=== PATIENT | male | born 1955 | race Caucasian/White ===

== ENCOUNTER → 2016-10-01 | Outpatient (CLI) | payer BC, OTHER ==
[~2016-10-01] MED LIST: ACET-24 PO; ARXIS25 SQ; ASPI81TA28 PO; CLC100 PO; DULO60CA44 PO; IBUP-103 PO; KRIL1CAP3 PO; LISI-729 PO; LISI2.5T5 PO; LRT5 PO; LVNIS30 SQ; MULT-890 PO; OXYC15TA89 PO; OXYC1TAB3 PO; OXYSR10 PO; PRAV20TA PO; RXC5 PO; ULT50X PO
== END | disposition home or self-care (01) ==
LOC: C.RDSM 15:40
PROVIDERS: ATTEND Physical Medicine & Rehabilitation Sports Medicine
DX: M25.569 Pain in unspecified knee (principal)

== ENCOUNTER → 2017-03-13 | Outpatient (CLI) | payer OTHER ==
[~2017-03-13] MED LIST changes: -ACET-24 PO; -LISI2.5T5 PO; -LVNIS30 SQ; -MULT-890 PO; -OXYC1TAB3 PO; -OXYSR10 PO; -RXC5 PO; -ULT50X PO
--- NOTE | 2017-03-13 09:35 | DIAGNOSTIC IMAGING REPORT ---
LEG LENGTH STUDY (WHOLE LEG) CLINICAL HISTORY: 61 years-old Male presenting with LEG LENGTH. TECHNIQUE: Bilateral frontal standing views of the lower extremities were obtained. COMPARISON: Plain radiographs of the bilateral knees in standing position from 04/23/2012. FINDINGS: Right: Right femur length: 48.9 cm Right tibia length: 40.4 cm Right leg length: 89.3 cm Left: Left femur length: 49.4 cm Left tibial length: 40.0 cm: Left leg length: 89.4 cm Degenerative changes noted at the bilateral knee joints with medial joint space loss increased since 2011. Bilateral hip joints and ankle mortises congruent. No significant degenerative change of the hips or ankles. No acute osseous injury. IMPRESSION: 1. No leg length discrepancy. 2. Bilateral degenerative changes of the knee joints with greater medial joint space loss in comparison to 2011. Electronically signed by: Eddie Pimentel M.D. 03/13/2017 9:34 AM Dictated Date/Time: 03/13/2017 9:31 AM
== END | disposition home or self-care (01) ==
LOC: C.RDSM 09:20
PROVIDERS: ATTEND Physician Assistant
DX: M17.0 Bilateral primary osteoarthritis of knee (principal)

== ENCOUNTER 2017-04-07 06:01 | Inpatient (IN) | payer OTHER ==
[2017-03-13 10:49] VITALS: BMI 24.0
--- NOTE | 2017-03-13 11:26 | PAT Medication Instructions ---
Service Date Mar 13, 2017. Current Home Medication List Aspirin (Aspirin Ec), 81 MG PO QAM Duloxetine Hcl (Cymbalta), 60 MG PO HS Ibuprofen Tab (Advil), 400 MG PO BID PRN for RN Krill Oil (Krill Oil), 1 TAB PO QAM Lisinopril (Zestril), 2.5 MG PO QAM Oxycodone Hcl (Oxycontin), 15 MG PO QID Medication Instructions For Your Scheduled Surgery - Check with surgeon for instructions: Ibuprofen Tab (Advil), 400 MG PO BID PRN for RN - Hold the following medications 2 weeks prior to surgery: Krill Oil (Krill Oil), 1 TAB PO QAM - Hold the following medications the morning of surgery: Lisinopril (Zestril), 2.5 MG PO QAM - Take the following medications the morning of surgery with a sip of water: Oxycodone Hcl (Oxycontin), 15 MG PO QID (okay to take up to 4 hours prior to surgery if needed) Aspirin (Aspirin Ec), 81 MG PO QAM (okay to continue per surgeon) - Take the following medications as scheduled the night before surgery: Oxycodone Hcl (Oxycontin), 15 MG PO QID Duloxetine Hcl (Cymbalta), 60 MG PO HS If you have any questions please call us at [phone] or [phone] or [phone]
--- NOTE | 2017-03-13 12:13 | DIAGNOSTIC IMAGING REPORT ---
CHEST PREADMISSION(PA/LAT) CLINICAL HISTORY: Preoperative chest COMPARISON STUDY: No previous studies for comparison. FINDINGS: The cardiac and mediastinal contours are normal. There is no evidence of focal pulmonary consolidation. There is no evidence of failure. No pleural effusions are visualized.[ IMPRESSION: No active disease in the chest. Electronically signed by: Nahum Duarte M.D. 03/13/2017 12:11 PM Dictated Date/Time: 03/13/2017 12:11 PM
[2017-03-13 12:28] LABS: BASO % 0.4 %; BASO ABS # 0.02 K/uL (0-0.2); COMPLETE YES; EOS % 5.2 %; IG% 0.2 %; LYMPH % 40.2 %; LYMPH ABS # 2.17 K/uL (1.2-3.4); MEAN CELL VOLUME 85.5 fL (80-100); MEAN CORPUSCULAR HEMOGLOBIN 29.9 pg (25-34); MEAN PLATELET VOLUME 11.6 fL (7.4-10.4); PLATELET COUNT 192 K/uL (130-400); RED BLOOD COUNT 4.91 M/uL (4.7-6.1)
[2017-03-13 12:41] LABS: PARTIAL THROMBOPLASTIN RATIO 1.1; PROTHROMBIN TIME (PATIENT) 10.3 SECONDS (9.0-12.0)
[2017-03-13 12:50] LABS: BUN/CREATININE RATIO 14.1 (10-20); CALCIUM 9.1 mg/dl (8.5-10.1); CREATININE 0.68 mg/dl (0.60-1.40); POTASSIUM 3.7 mmol/L (3.5-5.1)
[2017-04-07] VITALS (8 sets, daily range): BP systolic 119–150; BP diastolic 57–86; PULSE 59–82; TEMP 36.4–36.7; O2SAT 94–97; Ht 177.8 cm; Wt 77.9 kg
[~2017-04-07] VITALS: Ht 177.8 cm; Wt 77.9 kg
[~2017-04-07 06:01] MED LIST changes: +ACETAMINOPHEN 500 MG TAB PO SCH; -ARXIS25 SQ; +CEFAZOLIN 2000MG IV PUSH 10 ML IV SCH; -CLC100 PO; +CLONIDINE HCL 0.1 MG/24 HR TRANSDERM SYS TD SCH; +CeleBREX 200 MG CAP PO SCH; +DEXAMETHASONE 4 MG TAB PO SCH; +FAMOTIDINE 20 MG TAB PO SCH; +GABAPENTIN 300 MG CAP PO SCH; +LACTATED RINGER'S 1000ML 1,000 ML IV SCH; +LACTATED RINGER'S 1000ML 500 ML IV ONE; +LACTATED RINGER'S 1000ML IV SCH; -LISI-729 PO; +LISI2.5T5 PO; -LRT5 PO; +METOCLOPRAMIDE HCL 10 MG TAB PO SCH; +OXYCODONE HCL 10 MG TABCR (OXYCONTIN) PO SCH; -PRAV20TA PO; +ROPIVACAINE 5MG/ML 30 ML 150 MG, BUPIVACAINE/EPINEPHR 0.5% MPF 30 ML, KETOROLAC TROMETH... INFIL SCH; +TRAMADOL HCL 50 MG TAB PO SCH
[2017-04-07] MEDS ORDERED: BUPIVACAINE 0.5 % 5 MG/1 ML PF 10ML VIAL ONE (06:25)
[2017-04-07] MEDS ORDERED: BUPIVACAINE 0.25% 30 ML VIAL ONE (06:25)
[2017-04-07] MEDS ORDERED: EpHEDrine SULFATE INJ 50 MG/ML AMP IV PRN (06:30)
[2017-04-07] MEDS ORDERED: ONDANSETRON INJ 2 MG/ML 2 ML VIAL IV PRN ×2 (06:30→12:45)
[2017-04-07] MEDS ORDERED: ATROPINE SULFATE 0.1 MG/ML 5ML SYR IV PRN (06:30)
[2017-04-07] MEDS ORDERED: PROMETHAZINE HCL INJ 12.5 MG in SODIUM CHLORIDE 0.9% 50ML 50 ML IV PRN (06:30)
[2017-04-07] MEDS: TRANEXAMIC ACID INJ 1,000 MG in SODIUM CHLORIDE 0.9% 100ML 100 ML IV SCH ×2 (06:30→07:26)
[2017-04-07] MEDS ORDERED: HYDROmorphone INJ 1 MG/ML SYR IV PRN (06:30)
[2017-04-07] MEDS ORDERED: FENTANYL CITRATE INJ 50 MCG/1 ML 2 ML VIAL IV PRN (06:30)
--- NOTE | 2017-04-07 06:46 | History & Physical Bridge Note ---
H&P Re-Evaluation Bridge Note: I have examined the patient, reviewed the History & Physical and in the interval since the performance of the History & Physical I have noted the following changes of clinical significance: No changes noted
[2017-04-07] MEDS ORDERED: MIDAZOLAM HCL 1 MG/ML 2ML VIAL ONE ×3 (07:04→10:27)
[2017-04-07] MEDS ORDERED: FENTANYL CITRATE INJ 50 MCG/1 ML 2 ML VIAL ONE ×2 (07:04→11:02)
[2017-04-07] MEDS ORDERED: BACITRACIN 50000 UNIT VIAL ONE (09:01)
[2017-04-07] MEDS ORDERED: POVIDONE-IODINE OP SOLN 30 ML BTL ONE (09:01)
[2017-04-07] MEDS ORDERED: ORTHO JOINT ANESTHETIC ONE (09:01)
[2017-04-07] MEDS ORDERED: PROPOFOL IV EMULSION 10 MG/ML 20 ML VIAL IV ONE ×3 (09:20→11:08)
--- NOTE | 2017-04-07 12:39 | [facility] Operative Report ---
Operative Report Operative Date Apr 07, 2017. Pre-Operative Diagnosis Left Knee End-Stage Degenerative Joint Disease Post-Operative Diagnosis Left Knee End-Stage Degenerative Joint Disease Procedure(s) Performed Left Total Knee Arthroplasty, Repair Partial Patellar Tendon Avulsion Surgeon Dr. Eddie Morales Rotogravure Press Operator Surgeon(s) Dr. Patric Walker and Rosie Albright PA-C Estimated Blood Loss 100ml Findings Severe medial compartment osteoarthritis Specimens Permanent: A. Left Knee Bone and Tissue Drains none Anesthesia spinal with peripheral nerve block and IV sedation Complication(s) Partial intraoperative patellar tendon avulsion measuring 10 mm medial to lateral with an 12.5 mm superior to inferior dimension Indications Patient is a 61-year-old male with left knee medial compartment osteoarthritis refractory to nonsurgical methods of management including therapy medications prior surgery and injections. He is elected to proceed with operative intervention. Description of Procedure Informed consent was obtained. Patient was identified as Jaime Bagley. He identified the operative site as the left knee. I marked with my initials and preoperative surgical timeout was performed. Preoperative dose of IV antibiotics was given. He was taken to the operating room positioned supine on the operating room table. Spinal anesthetic peripheral nerve block and sedation were administered. The left leg was prepped and draped from the tourniquet to the ankle in the usual sterile fashion. A bump was placed under the left hip and a tourniquet about the left thigh. The examination under anesthesia revealed range of motion 0/7/120. There was no pathological laxity varus or valgus he had a negative Amrita and posterior drawer there is no effusion. The leg was then. DVT prophylaxis intraoperatively with foot pumps and postoperatively early mobility can go devices and Lovenox. He received a preoperative dose of transanexamic acid. The limb was exsanguinated with the Esmarch. Tourniquet inflated 150 mmHg. A midline longitudinal incision was made and extended slightly proximally and distally as necessary for total length of about 20-25 cm. A medial arthrotomy was performed followed by an extensile medial release. The retropatellar fat pad was resected. The synovial reflection in the lateral gutter was released. Soft tissue on the anterior aspect the distal femur was removed. There was grade 2 and 3 changes of the patella with marginal osteophytes these were excised and the patella was eventually resurfaced. Marginal osteophytes throughout the knee particularly in the medial compartment which were fairly large were removed. The knee was then placed into the flex position with the patella everted. Cruciate ligaments were excised. The lateral compartment looked normal the lateral meniscus was resected. The medial meniscus was largely deficient and the remnants of it were removed. The knee at this point was attempted to be subluxated. A avulsion of the superior medial portion of the patellar tendon 10 mm wide 12.5 mm long shape like a triangle occurred. This is probably due to stiffness of the knee and the remaining soft tissue tension. At this time I inserted 2 pins to prevent further propagation and it stayed like that for the entire procedure. The position of the pins was adjusted to allow further instrumentation to happen in the tibia. I also performed a more extensile medial release to allow the the need to be subluxated more easily. The remnants of the cruciates were excised. The knee was then subluxated. An intramedullary alignment glenn was inserted. The 0 cutting block was affixed and set to take 10 off the high side corresponding to total to off the low side. This was pinned in place and the alignment was confirmed with the extra medullary alignment glenn. Block was pinned in place the cut was made. Marginal osteophytes were removed and this was sized to a 5. Attention was turned the femur were car pilot hole was drilled followed by insertion of the intramedullary guide. Was set for 6 valgus 12 thick cut based upon flexion contracture and preoperative templating. This was pinned in place and the cut was made. The extension gap was a symmetric snug 10 mm. Knee was fully extended. Size line and the trans-epicondylar axis were marked out. The femur sized to a 4 external rotation drill holes were made. The size 4 anterior cutting block was applied the collateral ligaments were protected and the tiffani wing was utilized confirmed that there was no notching. The guide was Oxycet just above the 4 by a couple millimeters to ensure that there was no notching. It was sized to a 4. The flexion gap was rectangular. The cuts were then made and the extraneous bone was removed. Osteophytes in the back the knee were removed and the flexion gap was a symmetric 10. He was a little bit of tightness on the medial side of the knee. This was relieved with excising later during the procedure the on Medial and posterior medial bone and osteophytes not covered by the tibial implant. Box cutting guide was applied lateralized pinned in place the cut was made and the trial femur was applied. The trial tibia was then inserted after drilling and punching the keel. The knee was able to be fully extended and it had no and CL laxity in mid position. The knee was stable in full extension. There is trace LCL laxity in mid position and no LCL or MCL laxity at 90 flexion. The patella measured 26 mm in thickness the guide was set to preserve 15 mm of bone. The 41 mm of size was selected. The patellar jig was utilized to perform the cut. The patellar paddle was medialized and distal eyes and the lug holes were drilled after proper orientation with the knee in slight flexion. The patella tracked fine with the no hands technique. The components were removed from the knee copious lavage was performed to clean the bony surfaces the back the knee was injected with the orthotic joint mix. The canals were plugged. The cement was mixed with third-generation technique knee and then the components were cemented in place femur tibia and patella. Extraneous cement was removed. Care was taken to avoid flexion of the femoral component. The knee was then held full extension until cement hardened. The canals were previously plugged. Major of the arthritic joint mix was injected into the skin and subcutaneous tissues and joint capsule. After the cement had hardened the tourniquet was let down and meticulous hemostasis was performed. There was some mild oozing present and this was controlled with electrocautery. Didn't not appeared that the geniculate were bleeding. Trialing was again performed and the final component size 10 thick polyethylene was inserted patella tracked fine with a no hands technique. Composite patellar thickness was 26 mm. Greenwood assisted flexion with the extensor mechanism closed was 120 the knee was fully extended the laxity pattern was as mentioned previously. The back the knee was copiously irrigated and also inspected for cement. Extraneous cement in the back the knee was removed. This time the patellar tendon avulsion which had not propagated any further was repaired using 2 2.9 juggernaut anchors. The arthrotomy was closed with interrupted #2 FiberWire above the equator patella running and interrupted #1 Vicryl below the skin was closed in layers with 0 and 2-0 Vicryl jessie on the skin. A soft sterile dressing was applied with a full-length Jevon wrap. The patient was sent to the floor the knee immobilizer. The rehabilitation but will likely be unchanged due to his patellar tendon avulsion. He'll likely need to just use a knee immobilizer temporarily when ambulating to ensure that he has good quad control and function. Be rehabilitated according to the total knee rehabilitation protocol. At the conclusion operations both patient's informed her my findings. Detailed postoperative instructions were given. Blood loss was approximate 100 mL specimens included bone soft tissue counts are correct in the case complications were as mentioned above Components inserted were the J[employer]J PFC Sigma rotating platform knee size 5 keeled tibial tray size 4 posterior stabilized femoral component left. A size 4 10 mm thick rotating platform polyethylene insert and a 41 mm 3 peg oval dome patella I attest to the content of the Intraoperative Record and any orders documented therein. Any exceptions are noted below.
[2017-04-07] MEDS ORDERED: SOD PHOSPHATE/SOD BIPHOSPHATE ENEMA 132 ML BTL PR PRN (12:45)
[2017-04-07] MEDS ORDERED: TAMSULOSIN HCL 0.4 MG CAP PO PRN (12:45)
[2017-04-07] MEDS ORDERED: NO NSAIDS SCH (12:45)
[2017-04-07] MEDS ORDERED: MAGNESIUM HYDROXIDE SUSP 30 ML UDC PO PRN (12:45)
[2017-04-07] MEDS ORDERED: METOCLOPRAMIDE HCL INJ 5 MG/ML 2 ML VIAL IV PRN (12:45)
[2017-04-07] MEDS ORDERED: BISACODYL 10 MG SUPP PR PRN (12:45)
[2017-04-07] MEDS ORDERED: ALUMINUM/MAGNESIUM/SIMETH (MAALOX MAX) 30 ML UDC PO PRN (12:45)
--- NOTE | 2017-04-07 12:50 | History and Physical ---
History & Physical Date of Service Apr 07, 2017. History & Physical [address] [place] [address] History & Physical Patient Name: Jaime Bagley Unit Number: [id number] Date of : 1955 Patient Status: Pre-registered Surgical Day Care Attending Doctor: Eddie Morales M.D. History - H&P History & Physical Date & Time of Service: Mar 31, 2017 at 13:26 Chief Complaint: Left Knee Degenerative Joint Disease Primary Care Physician: Elio Bejarano D.O. History of Present Illness Source: patient The patient is a 61-year-old male who is scheduled for an elective left total knee arthroplasty by Dr. Morales and April 07, 2017. His been having ongoing left knee pain for the past 10 years. Has progressively worsened over the last 6-12 months. He states that most of his pain is on the front of his knee. His pain is bad for a very long time but has gradually worsened. He complains of a lot of stiffness in his left knee, especially after sitting for prolonged period of time. He also gets stiffness with driving. He says when he tries to get out of the car he feels like it is very weak and very stiff. His pain is increased with activity and weightbearing. He has decreasing activities of daily living due to pain in his left knee. He has pain with range of motion and limited motion due to his pain. Aggravating activities include walking, going up and down steps, driving, rest. He also does have night pain which wakes him up at night to reposition for comfort. When going up and down the steps he has to use handrails on the steps for safety. Prior treatments include nonsteroidal anti-inflammatory drugs such as Advil and Aleve. He is also on chronic oxycodone which she takes for his knees and back. He is previously had physical therapy for his knee with no significant improvement. He has also tried previous corticosteroid injections and viscous supplementation his left knee. He is also been going to the pain clinic over the past year for management of his pain due to his knees. He would like to stop going there and feels that at this point his pain is so bad that he would like to proceed with an elective left total knee arthroplasty. Denies any known injury to either knee. Denies any numbness or tingling. Past Medical/Surgical History 1. History of MO in 2010 2. Stent placement 2 in 2010 3. Bilateral knee arthroscopy in 2011 4. History of fractured vertebrae and 3 ribs last year 5. High [id number] 6. Carpal tunnel syndrome bilateral hands 7. Osteoarthritis 8. Borderline diabetic 9. Sleep apnea-does not use a CPAP. Family History Family history significant for heart disease, diabetes, and cancer. Social History He does not use a cane or walker to assist with angulation. Smokeless Tobacco Use: Yes (Daily) Alcohol Use: occasionally (He drinks per week) Marital Status: Housing status: lives with significant other (, Single level home) Immunizations History of Influenza Vaccine: No History of Tetanus Vaccine?: Yes History of Pneumococcal: No History of Hepatitis B Vaccine: No Allergies Coded Allergies: Statins (Verified Allergy, Unknown, MUSCLE ACHES, 03/13/17) Home Medications Scheduled Aspirin (Aspirin Ec), 81 MG PO QAM Duloxetine Hcl (Cymbalta), 60 MG PO HS Krill Oil (Krill Oil), 1 TAB PO QAM Lisinopril (Lisinopril), 1 TAB PO DAILY Oxycodone Hcl (Oxycontin), 15 MG PO QID Scheduled PRN Ibuprofen Tab (Advil), 400 MG PO BID PRN for sales marketing manager of Systems Constitutional: No fever, No chills, No weight loss, No fatigue Eyes: No worsening of vision, No eye pain, No redness, No diplopia ENT: No hearing loss, No sore throat, No tinnitus, No dental problems, No trouble swallowing Respiratory: No cough, No sputum, No wheezing, No shortness of breath, No dyspnea on exertion, No dyspnea at rest Cardiovascular: No chest pain, No edema, No claudication, No palpitations Abdomen: No pain, No nausea, No vomiting, No diarrhea, No constipation Musculoskeletal: + joint pain (bilateral knees), No muscle pain, No swelling, No calf pain Genitourinary - Male: No hematuria, No dysuria, No urinary frequency, No urinary urgency, No urinary hesitancy, No urinary retention Neurologic: No memory loss, No numbness/tingling, No balance problems Psychiatric: No depression symptoms, No anxiety Endocrine: No fatigue Hematologic / Lymphatic: No abnormal bleeding/bruising, No clotting problems Integumentary: No rash, No itch Allergic / Immunologic: No frequent infections, No poor healing Physical Ex - H&P Physical Exam Vital Signs Height is 5 feet 10 inches. Weight is 160 pounds General Appearance: WD/WN, no apparent distress Head: normocephalic, atraumatic Eyes: normal inspection, PERRL, EOMI ENT: normal ENT inspection, hearing grossly normal, TMs normal, pharynx normal Neck: supple, no adenopathy, thyroid normal, no carotid bruits, trachea midline Respiratory/Chest: chest non-tender, lungs clear, normal breath sounds, no respiratory distress, no accessory muscle use Cardiovascular: regular rate, rhythm, no edema, no murmur, normal peripheral pulses Abdomen/GI: normal bowel sounds, non tender, soft Back: normal inspection, normal range of motion Extremities/Musculoskelatal: normal inspection, no calf tenderness, normal capillary refill, no pedal edema, non-tender, + pertinent finding (Exam of left knee reveals no effusion today, medial joint line tenderness with palpation. Ligamentous exam is intact. Does have a varus deformity. Range of motion of his right knee is 0/10/125 and range of motion of his left knee is 0/10/125. Crepitation with range of motion. Intact straight leg raise.) Neurologic/Psych: no motor/sensory deficits, alert, normal mood/affect, normal reflexes, oriented x 3, + pertinent finding Skin: normal color, warm/dry, no rash Lymphatic: no adenopathy He ambulates with an antalgic gait. Diagnostics - H&P Diagnostics Laboratory Results As per [facility] EMR Diagnostic Radiology Radiology images: X-rays of his left knee reveal end-stage degenerative joint disease with [id number] in the medial compartment and osteophyte formation and subchondral sclerosis. CXR normal Impression - H&P Impression Assessment and Plan Assessment: End-stage DJD left knee Plan: Patient is scheduled for an elective left total knee arthroplasty on April 07, [address] Eddie Morales at [facility]. Risks and complications of surgery were explained to the patient and include but are not limited to infection, pain, bleeding, stiffness, wound problems, weakness, incomplete relief of symptoms, hardware failure, wear, fracture, blood clots, embolisms, heart attack, stroke, and . Informed consent was obtained by Dr. Morales. He will have preadmission testing prior to surgery in which we will obtain a preoperative CBC, BMP, PT, PTT, type and screen, chest x-ray and EKG. Preoperative medical clearance from his family physician Dr. Elio Bejarano and his whip operator Dr. Gao. We will use Lovenox 30 mg twice a day 4 weeks postoperatively for DVT prophylaxis. At time of discharge , he would like to go home with home health versus outpatient physical therapy. Post operative course was discussed. All questions were answered today and he knows to call with any further problems, questions, or concerns. Level of Care Med/Surg Resuscitation Status FULL RESUSCITATION Additional Copies To Elio Bejarano D.O.
--- NOTE | 2017-04-07 12:52 | [facility] Operative Report ---
Operative Report Operative Date Apr 07, 2017. Pre-Operative Diagnosis Left Knee End-Stage Degenerative Joint Disease Post-Operative Diagnosis Left Knee End-Stage Degenerative Joint Disease Procedure(s) Performed Left Total Knee Arthroplasty, Repair Partial Patellar Tendon Avulsion Surgeon Dr. Eddie Morales Processing Mgr Surgeon(s) Dr. Patric Walker and Rosie Albright PA-C Estimated Blood Loss 100ml Findings DJD left knee Specimens Permanent: A. Left Knee Bone and Tissue Drains none Anesthesia spinal with peripheral nerve block and IV sedation Complication(s) None Disposition Recovery Room / PACU (stable) Indications Patient is a 61-year-old male with complaints of progressively worsening left knee pain ongoing for many years. He has failed conservative treatment. X- rays have been taken and she confirm end-stage osteoarthritis left knee. Surgical intervention recommended. Risks and complications discussed. He agreed to proceed with surgery. Informed consent was obtained. Surgery is scheduled. Description of Procedure Patient was taken to the operating room, placed under spinal anesthesia. He also had a peripheral nerve block. He was given IV Ancef for surgical prophylaxis. Timeout was performed. He was prepped and draped in routine sterile fashion. He tolerated the procedure well. I was present during the entire case, please see Dr. Morales's operative report for further detail. He was awakened and transferred to recovery room in stable condition. I attest to the content of the Intraoperative Record and any orders documented therein. Any exceptions are noted below.
--- NOTE | 2017-04-07 13:00 | Anesthesiology Progress Note ---
Anesthesia Post Op Note Date & Time Apr 07, 2017 at 13:00 Vital Signs Pain Intensity: 0 Vital Signs Past 12 Hours Date Time Temp Pulse Resp B/P (MAP) Pulse Ox O2 Delivery O2 Flow Rate FiO2 04/07/17 12:50 57 19 112/80 98 Nasal Cannula 2 04/07/17 12:40 61 13 120/75 98 Nasal Cannula 2 04/07/17 12:32 36.1 61 12 108/76 97 Nasal Cannula 2 04/07/17 06:54 36.6 61 20 150/86 95 Room Air Notes Mental Status: alert / awake / arousable, participated in evaluation Pt Amnestic to Procedure: Yes Nausea / Vomiting: adequately controlled Pain: adequately controlled Airway Patency, RR, SpO2: stable & adequate BP & HR: stable & adequate Hydration State: stable & adequate Neuraxial Anesthesia: was administered, sensory block is resolving Anesthetic Complications: no major complications apparent Doing well. VSS.
--- NOTE | 2017-04-07 13:57 | DIAGNOSTIC IMAGING REPORT ---
TWO VIEWS LEFT KNEE CLINICAL HISTORY: Postoperative examination. FINDINGS: AP and crosstable lateral portable views of the left knee are obtained. A left knee arthroplasty is in near anatomic alignment. There has been undersurface remodeling of the patella. No acute fracture is seen. There are expected postoperative changes around the knee including skin clips, soft tissue edema, and subcutaneous gas. IMPRESSION: Expected postoperative changes status post left knee arthroplasty. No acute fracture is seen. Electronically signed by: Lisandro Poe M.D. 04/07/2017 1:56 PM Dictated Date/Time: 04/07/2017 1:55 PM
[2017-04-07] MEDS: D5W AND 1/2NSS + 20MEQ KCL 1,000 ML IV SCH ×2 (14:28→23:31)
[2017-04-07] MEDS: ACETAMINOPHEN 500 MG TAB PO SCH ×2 (15:54→23:31)
[2017-04-07] MEDS: OXYCODONE HCL IR 5 MG TAB (IMMEDIATE RELEASE) PO SCH ×2 (16:49→21:16)
--- NOTE | 2017-04-07 17:49 | PROGRESS NOTE ---
DATE: 04/07/2017 SUBJECTIVE: The patient is resting comfortably in bed. He has had a good appetite with no nausea or vomiting. Pain has been well controlled. He has a 2+ dorsalis pedis pulse. Normal sensation, 5/5 ankle and toe plantar flexion and dorsiflexion strength. His x-ray showed good positioning of the total knee arthroplasty without evidence of complication. He is afebrile. His vital signs are stable. We discussed the partial patellar tendon injury. Will hold him in a knee immobilizer for ambulation for time being. Rehab exercises are reinforced. He will be started on his Lovenox tonight. Postoperative plans and rehabilitation were discussed.
[2017-04-07] MEDS: CEFAZOLIN IV 1,000 MG in SYRINGE 0 ML IV SCH (18:09)
[2017-04-07] MEDS: DOCUSATE SODIUM 100 MG CAP PO SCH (21:16)
[2017-04-07] MEDS: DULOXETINE HCL 60 MG CAP PO SCH (21:16)
[2017-04-07] MEDS: MoRPHine SULFATE 2 MG/ML CARP IV PRN (23:34)
[2017-04-08] MEDS: CEFAZOLIN IV 1,000 MG in SYRINGE 0 ML IV SCH (02:20)
[2017-04-08 03:00] VITALS: BP 117/63; PULSE 55; TEMP 36.4; O2SAT 94
[2017-04-08] MEDS: TRAMADOL HCL 50 MG TAB PO PRN ×3 (05:21→13:56)
[2017-04-08 05:36] LABS: HEMATOCRIT 32.6 % (42-52); MEAN CELL VOLUME 85.3 fL (80-100); MEAN CORPUSCULAR HEMOGLOBIN 28.5 pg (25-34); MEAN CORPUSCULAR HGB CONC 33.4 g/dl (32-36); MEAN PLATELET VOLUME 10.8 fL (7.4-10.4); PLATELET COUNT 156 K/uL (130-400); RED BLOOD COUNT 3.82 M/uL (4.7-6.1); WHITE BLOOD COUNT 9.13 K/uL (4.8-10.8)
[2017-04-08 06:01] LABS: BUN/CREATININE RATIO 23.8 (10-20); CALCIUM 8.2 mg/dl (8.5-10.1); CREATININE 0.65 mg/dl (0.60-1.40)
[2017-04-08] MEDS: MoRPHine SULFATE 2 MG/ML CARP IV PRN (06:05)
[2017-04-08 07:28] VITALS: BP 136/75; PULSE 63; TEMP 36.6; O2SAT 97
[2017-04-08] MEDS ORDERED: DEXAMETHASONE 4 MG TAB PO ONE (07:30)
[2017-04-08] MEDS: ASPIRIN 81 MG ECTAB PO SCH (08:09)
[2017-04-08] MEDS: ACETAMINOPHEN 500 MG TAB PO SCH ×3 (08:09→23:44)
[2017-04-08] MEDS: DOCUSATE SODIUM 100 MG CAP PO SCH ×2 (08:09→20:43)
[2017-04-08] MEDS: MULTIVITAMIN TAB PO SCH (08:09)
[2017-04-08] MEDS: PANTOprazole SOD 40 MG TAB PO SCH (08:10)
[2017-04-08] MEDS: ENOXAPARIN 30 MG/0.3 ML SYR SQ SCH ×2 (08:10→20:45)
[2017-04-08] MEDS: OXYCODONE HCL IR 5 MG TAB (IMMEDIATE RELEASE) PO SCH (08:46)
[2017-04-08] MEDS ORDERED: HYDROmorphone INJ 1 MG/ML SYR IV PRN (09:45)
[2017-04-08] MEDS ORDERED: HYDROmorphone INJ 0.5 MG/0.5 ML SYR IV PRN (09:45)
--- NOTE | 2017-04-08 09:48 | Orthopedic Progress Note ---
Orthopedic Progress Note Date of Service Apr 08, 2017. Subjective Post OP Day: 1 Reports: feeling well, complaints (pain increased on yesterday), Denies: chest pain, SOB, nausea / vomiting, light headedness, calf pain Additional Notes: States that morphine "does nothing for him". He requested it be switch to something else. He states that he is having increased pain but tolerable. He did take chronic OxyContin and Percocet prior to admission for the last 18 months. Objective calves soft nontender, N/V intact, capillary refill less than 2 sec., dressing C /D/I, A&O x3, toes mobile Distal pulses are 1+. Distal sensation is normal. Out of bed and chair. Knee mobilizer in place. Tolerates ankle pumps. No calf tenderness with palpation Date Time Temp Pulse Resp B/P (MAP) Pulse Ox O2 Delivery O2 Flow Rate FiO2 04/08/17 07:28 36.6 63 16 136/75 (95) 97 Room Air 04/08/17 07:25 Room Air 04/08/17 03:00 36.4 55 16 117/63 (81) 94 Room Air 04/07/17 23:30 Room Air 04/07/17 22:50 36.7 77 18 126/57 (80) 94 Room Air 04/07/17 16:44 36.5 82 18 133/71 (91) 95 Room Air 04/07/17 15:45 36.4 75 18 119/66 (83) 96 Room Air 04/07/17 15:15 94 Nasal Cannula 2.0 04/07/17 14:45 36.6 82 16 121/63 (82) 94 2.0 04/07/17 14:20 62 16 128/77 (94) 96 Nasal Cannula 2.0 04/07/17 14:14 97 Nasal Cannula 2.0 04/07/17 13:45 36.4 59 16 127/68 (87) 97 Nasal Cannula 2.0 04/07/17 13:45 97 Nasal Cannula 2.0 04/07/17 13:30 54 13 120/84 98 Nasal Cannula 2 04/07/17 13:10 36.9 56 11 122/80 99 Nasal Cannula 2 04/07/17 13:00 52 13 111/76 98 Nasal Cannula 2 04/07/17 12:50 57 19 112/80 98 Nasal Cannula 2 04/07/17 12:40 61 13 120/75 98 Nasal Cannula 2 04/07/17 12:32 36.1 61 12 108/76 97 Nasal Cannula 2 Laboratory Results 24 Hours: Test 04/08/17 05:19 Hematocrit 32.6 % Hemoglobin 10.9 g/dL Assessment & Plan Assessment: Postop day 1-left total knee arthroplasty by Dr. Morales Acute blood loss anemia Plan: Monitor H&H. No need for transfusion at this time. Asymptomatic. Continue Lovenox for DVT prophylaxis, to start this morning. Will take one month postoperatively. Teds and AV impulse boots for DVT prophylaxis Regular diet as ordered. Pain medication as ordered. DC morphine and Dilaudid. Continue chronic pain regimen. Continue out of bed with assistance of a walker and knee immobilizer. He should wear the knee immobilizer at all times when walking. He can otherwise do normal total knee rehabilitation. He may weight-bear as tolerated. PT to start this morning. Plan for discharge to home with in-home physical therapy and nursing. administrative services director to arrange. Will prescribe a prescription for a walker. We'll discuss findings with Dr. Morales. Plan for discharge to home tomorrow. Discharge Planning Discharge Planning: home with home health Pain Management: Ultram, PO Tylenol, Oxy IR DVT Prophylaxis: TEDs, Lovenox (30 mg twice a day 28 days.) Therapy: Physical Therapy
[2017-04-08] MEDS ORDERED: CLC100 PO (09:51)
[2017-04-08] MEDS ORDERED: LVNIS30 SQ (09:51)
[2017-04-08] MEDS ORDERED: ACET-24 PO (09:51)
[2017-04-08] MEDS ORDERED: MULT-890 PO (09:51)
[2017-04-08] MEDS ORDERED: ULT50X PO (09:51)
[2017-04-08] MEDS ORDERED: RXC5 PO (09:51)
[2017-04-08] MEDS: D5W AND 1/2NSS + 20MEQ KCL 1,000 ML IV SCH (10:01)
--- NOTE | 2017-04-08 10:07 | Discharge Instructions ---
Discharge Instructions Date of Service Apr 08, 2017. Admission Reason for Admission: Left Knee Osteoarthritis Discharge Discharge Diagnosis / Problem: left knee osteoarthritis Discharge Goals Goal(s): Decrease discomfort, Improve function, Increase independence Activity Recommendations Activity Limitations: per Instructions/Follow-up section Weightbearing Status: Left weightbearing (as tolerated) . Instructions / Follow-Up Instructions / Follow-Up check a CBC Thursday New Medicine: * You will likely be taking one or more of these medications: 1. Lovenox 30 mg subcutaneously every 12 hours. He will take this for approximately one month after surgery. There is one refill on her prescription as you may need to continue a longer period Aspirin, 81 mg is OK. 2. Oxycontin - Take one every 12 hours. Take as previously prescribed. 3. Percocet - Take, as directed, when you need it, every four to six hours to control your pain. 4. Colace & Senokot - Take to prevent constipation which can be caused by narcotics. These can be bought [id number] at the pharmacy 5. Tramadol-take, as directed, one to 2 tabs every 4-6 hours as needed for pain. * The most common side effects of pain medicine and iron are nausea and constipation. If nausea or constipation is too much of a problem or if you have any questions about your new medicines or doses, call [facility] at . We will try to help you manage these issues. VERY IMPORTANT TO READ AND REVIEW" Blood Clots and Blood Thinning Medicine: * You are given Lovenox during the immediate post-operative period to lessen the risk of blood clots forming in your legs and/or lungs. Lovenox is usually given for 4 weeks after surgery. *You will need to get a CBC (blood count) on Thursday following your surgery. Prescription is provided. Home nursing should be able to obtain. Physical Therapy: * Do your physical therapy at home. These are the exercises you learned while in the hospital (quad sets, leg raises, calf pumps, gluteal squeezes, knee bending, and heel props.) You should do these exercises 3-4 times per day. * You will either go to inpatient rehab ([facility]), home with Home Therapy and nursing or home with outpatient rehab. You should do rehab with the therapist 2-3 times per week. You should do therapy on your own daily. * You may bear full weight on your leg with crutches or walker unless otherwise advised. * Keep immobilizer on left knee when ambulating for protection of patellar tendon. Do this until your follow-up with Dr. Morales in approximately 2 weeks. Home Exercise: * You were shown a series of exercises (heel props, heel slides, etc.) in the hospital. Do these exercises three to four times each day including the exercises you were shown in physical therapy. Walking: * You may be up for short periods of time. Standing and walking for 1-2 hours at a time is usually okay. You should not stand or walk for excessive periods of time as this may cause increased pain and swelling. SELF CARE INSTRUCTIONS AFTER TOTAL KNEE REPLACEMENT A. You may need to continue a physical therapy program after discharge from the hospital. There are several options available to you. Your doctor will assist you in selecting the best one for you. 1. An out-patient facility 2 to 3 times a week for therapy or home therapy. 2. Continue working on all exercises taught to you in the hospital. Your goals should be to increase bending of your knee to 90 degrees and beyond and to fully straighten your knee. B. Your therapist will notify you when you are able to progress from a walker to a cane. C. Wear TEDS as much as possible.~ They may be removed at night for laundering. D. Do not place a pillow behind your knee when resting. A pillow at your ankle is okay. E. Ice your knee 15-20 minutes every 2-3 hours and elevate it above the level of your heart. F. You may shower on the fourth day after surgery using regular soap and water. Do not submerge until the wound is completely healed (approximately 2 weeks ). Until the fourth day after surgery, cover the incision/bandage with a bag or plastic wrap. G. Anyone who is touching your surgical incision area should wash their hands and wear gloves. H. Keep your incision covered with gauze pads under the JASON hose until it is dry. I. if you have asked Silverlon dressing over your incision please keep intact for 1 week. After 7 days you may remove and keep covered with a light dressing and her JASON stockings until your follow-up appointment. VERY IMPORTANT TO READ AND REVIEW A. YOU WILL BE GIVEN AN ORDER AT DISCHARGE FOR PT/INR (BLOOD WORK). PLEASE HAVE THIS DONE INSTRUCTED. PLEASE CALL OUR OFFICE AFTER YOUR BLOODWORK IS COMPLETE SO WE CAN TRACK YOUR RESULTS. IF YOU ARE GOING TO OUTPATIENT PHYSICAL THERAPY, YOU WILL NEED TO GO TO OUTPATIENT TESTING TO HAVE IT DRAWN. B. There are a few signs you need to watch for after you are home. Call [facility] if you notice any of the followin. Increased severe knee pain. Some pain is expected especially when you exercise. 2. Increased swelling in your leg or knee; pain or swelling of the calf muscle in either lower leg. 3. Any fluid drainage from the incision. 4. Shortness of breath or chest pain. 5. Numbness and tingling in the surgical extremity C. Please call [facility] at if you have any concerns or questions about your operation or recovery. The doctor or his nurse will return your call promptly. D. Do not have any elective dental work or other elective procedures done for 6 weeks after your knee replacement. When you have any invasive procedure (dental cleaning, extraction, colonoscopy etc) performed, you will need to take antibiotics to prevent infection from developing in your artificial joint. Tell your other health care providers you have an artificial joint. My office will supply you with further information and the antibiotics. Call your doctor if: * Temperature above 101 degrees F. * Pain not relieved by pain medicine ordered. * Increased drainage or redness from incision. * Notify your doctor with any questions or concerns. Follow-up Visit: You will follow-up with Dr. Morales 10-14 days after surgery. The office number is . Please call to confirm your appointment. Avoid all tobacco products. If you need help to stop smoking, call [place] FREE QUITLINE at . This is a free call. Current Hospital Diet Patient's current hospital diet: Regular Diet Discharge Diet Recommended Diet: Regular Diet Procedures Procedures Performed: Left Total Knee Arthroplasty, Repair Partial Patellar Tendon Avulsion Pending Studies Studies pending at discharge: no Medical Emergencies . Who to Call and When: Medical Emergencies: If at any time you feel your situation is an emergency, please call 911 immediately. . Non-Emergent Contact Non-Emergency issues call your: Surgeon Call Non-Emergent contact if: temperature is above 101, your pain is not controlled, your pain is unusual for you, your pain is concerning you, wound has increased drainage, wound has increased redness, wound has increased pain, you have any medication questions . "Provider Documentation" section prepared by Rosie Albright. . VTE Core Measure Inpt VTE Proph given/why not?: Enoxaparin (Lovenox)SQ (30 mg every 12 hours 28 days), Santy Vargas [place] Drug Monitoring Program Search Results: patient reviewed within database, no issues identified
[2017-04-08] MEDS: OXYCODONE HCL 15 MG TABCR (OXYCONTIN) PO SCH ×2 (10:17→20:44)
[2017-04-08 11:03] VITALS: BP 124/67; PULSE 67; TEMP 36.7; O2SAT 95
[2017-04-08] MEDS: OXYCODONE HCL IR 5 MG TAB (IMMEDIATE RELEASE) PO PRN ×2 (12:37→17:00)
[2017-04-08 15:39] VITALS: BP 146/74; PULSE 77; TEMP 36.7; O2SAT 95
[2017-04-08 16:00] VITALS: O2SAT 95
--- NOTE | 2017-04-08 18:39 | PROGRESS NOTE ---
DATE: 04/08/2017 SUBJECTIVE: Resting comfortably in bed. He did have a lot of pain last evening and today which is under better control. He is not having any current chest pains or shortness of breath. OBJECTIVE: He is afebrile. His vital signs are stable. His urine output is adequate. White count 9, hematocrit 33, platelets are at 156. PRP is noted. Dressing is clean and dry. He has a 1+ dorsalis pedis pulse. Normal sensation. 5/5 ankle and toe plantar flexion and dorsiflexion strength. ASSESSMENT: Left total knee replacement. PLAN: He is doing very well. We will plan on changing his dressings tomorrow. Reinforcement of exercise and wound care is discussed. We reviewed multiple model pain controlled. Continue DVT prophylaxis with Lovenox.
[2017-04-08] MEDS: DULOXETINE HCL 60 MG CAP PO SCH (20:43)
[2017-04-08 23:17] VITALS: BP 127/64; PULSE 70; TEMP 36.8; O2SAT 96
[2017-04-09] MEDS: OXYCODONE HCL IR 5 MG TAB (IMMEDIATE RELEASE) PO PRN ×3 (01:42→09:56)
[2017-04-09 06:19] VITALS: BP 132/76; PULSE 59; TEMP 36.6; O2SAT 96
[2017-04-09 07:03] LABS: PARTIAL THROMBOPLASTIN RATIO 1.1
[2017-04-09] MEDS: MULTIVITAMIN TAB PO SCH (07:29)
[2017-04-09] MEDS: ACETAMINOPHEN 500 MG TAB PO SCH (07:29)
[2017-04-09] MEDS: DOCUSATE SODIUM 100 MG CAP PO SCH (07:30)
[2017-04-09] MEDS: TRAMADOL HCL 50 MG TAB PO PRN ×2 (07:30→11:52)
[2017-04-09] MEDS: ASPIRIN 81 MG ECTAB PO SCH (07:30)
[2017-04-09] MEDS: PANTOprazole SOD 40 MG TAB PO SCH (07:30)
[2017-04-09] MEDS: ENOXAPARIN 30 MG/0.3 ML SYR SQ SCH (07:31)
[2017-04-09] MEDS: OXYCODONE HCL 15 MG TABCR (OXYCONTIN) PO SCH (07:31)
--- NOTE | 2017-04-09 08:39 | Progress Note ---
Progress Note Date of Service Apr 09, 2017. Progress Note The patient is resting comfortably in bed. He does have some pain. He denies any type of chest pain shortness of breath. He is afebrile his vital signs are stable. His labs are noted. He has intact distal neurovascular function in his left leg. He is missing about 7 to 10 of terminal knee extension. He does not have significant swelling within his joint. There is a small fluid collection inferior and lateral along the skin flap. There is no active wound drainage and no erythema. Verbal consent is obtained. Preprocedural timeout performed. Sterile technique is utilized after prepping with Betadine and allowing it to dry. 20 mL of bladder aspirated from the subcutaneous obtaining his tissues inferior and lateral portion of the incision. Pressures held. A new dressing with a compressive wrap was applied along with a JASON hose stocking. Impression is #1 left total knee replacement #2 postoperative subcutaneous hematoma small #3 is partial patellar tendon avulsion Plan: I think the patient is suitable for discharge. I have thoroughly reviewed the discharge instructions with him. He will go home with home health services. He will follow up with me as scheduled. We discussed things to watch out for including wound drainage fevers severe pain etc. If he has any problems he'll contact my office or go to the emergency room. He'll be on his regular medications including his pain meds. Will give him some additional pain medicine. He will be on a stool softener and Lovenox. We'll need to check a CBC. Bathing and wound care instructions were given as all as well as therapy. For now I want him to be ambulating with a knee immobilizer on. He is unable to do a straight leg raise which I think is due to pain. We'll also help protect his extensor mechanism. I do not think that the patellar tendon avulsion injury is substantial enough that any other significant alteration in his rehabilitation would be necessary.
[2017-04-09] MEDS ORDERED: OXYC1TAB3 PO (08:50)
--- NOTE | 2017-04-09 08:58 | Discharge Summary ---
Orthopedic Discharge Summary Admission Date/Reason Apr 07, 2017 at 06:49 Left Knee Osteoarthritis. Discharge Date/Disposition Apr 09, 2017 Home Diagnosis Principal Diagnosis: Left knee osteoarthritis Procedure(s) Performed Left total knee replacement Medication Reconciliation He is being discharged on his regular medications. Additionally he will take Colace and Senokot. He will be on Lovenox 30 mg twice a day. He will also be placed on Ultram and oxycodone immediate release for pain control. Admission Physical Exam As per Admitting History & Physical. Hospital Course Mr. Bagley was admitted to the hospital after a total knee arthroplasty. He did have a small partial patellar tendon avulsion intraoperatively. This was repaired. His knee was protected in a immobilizer when ambulating for the time being. He is on chronic pain medication preoperatively due to back and knee problems. His pain was well managed. He received the routine course of postop IV antibiotics. He did have some fluid underneath his incision which required an aspiration of 20 mL of fluid. He received the routine course of postop IV antibiotics. Early ambulation JASON hose and foot pumps and Lovenox. For DVT prophylaxis. He did well with physical therapy. He remained afebrile with stable vital signs. He was tolerating a regular diet. He'll be discharged home. He'll have home health services. Medication regimen as listed above. Bathing and wound care instructions were given. He is to follow up with me in 10 days to 2 weeks postoperatively. This any problems with pain fever swelling wound drainage. Please call my office or go to emergency room. He will in today with his knee immobilizer on. Discharge Instructions Please refer to the electronic Patient Visit Report (Discharge Instructions) for additional information.
[2017-04-09 09:25] VITALS: BP 132/76; PULSE 59; TEMP 36.6; O2SAT 96
[2017-04-16] MEDS ORDERED: CLC100 PO (09:20)
[2017-04-16] MEDS ORDERED: OXYSR10 PO (10:29)
== END 2017-04-09 12:50 | disposition home health service (06) | DRG 470 ==
LOC: C.ACU 06:01 → C.3E 06:49 → ENRESERV 13:14
PROVIDERS: ADMIT Physical Medicine & Rehabilitation Sports Medicine; ATTEND Physical Medicine & Rehabilitation Sports Medicine
PROC: 0MQP0ZZ Repair Left Knee Bursa and Ligament, Open Approach (ICD-10-PCS; principal; 2017-04-07 08:30)
PROC: 0SRD0J9 Replacement of Left Knee Joint with Synthetic Substitute, Cemented, Open Approach (ICD-10-PCS; principal; 2017-04-07 08:30)
PROC: 0J9P3ZZ Drainage of Left Lower Leg Subcutaneous Tissue and Fascia, Percutaneous Approach (ICD-10-PCS; 2017-04-09)
DX: M17.12 Unilateral primary osteoarthritis, left knee (principal); L76.32 Postprocedural hematoma of skin and subcutaneous tissue following other procedure; D62 Acute posthemorrhagic anemia; S76.112A Strain of left quadriceps muscle, fascia and tendon, initial encounter; Z95.5 Presence of coronary angioplasty implant and graft; G47.30 Sleep apnea, unspecified; E78.5 Hyperlipidemia, unspecified; R73.03 Prediabetes; Y92.239 Unspecified place in hospital as the place of occurrence of the external cause; I25.2 Old myocardial infarction; Z79.82 Long term (current) use of aspirin; Y83.8 Other surgical procedures as the cause of abnormal reaction of the patient, or of later complication, without mention of misadventure at the time of the procedure

== ENCOUNTER 2017-05-26 05:03 | Inpatient (IN) | payer OTHER ==
--- NOTE | 2017-03-31 13:44 | History and Physical ---
History & Physical Date & Time of Service: Mar 31, 2017 at 13:26 Chief Complaint: Left Knee Degenerative Joint Disease Primary Care Physician: Elio Bejarano D.O. History of Present Illness Source: patient The patient is a 61-year-old male who is scheduled for an elective left total knee arthroplasty by Dr. Morales and April 07, 2017. His been having ongoing left knee pain for the past 10 years. Has progressively worsened over the last 6-12 months. He states that most of his pain is on the front of his knee. His pain is bad for a very long time but has gradually worsened. He complains of a lot of stiffness in his left knee, especially after sitting for prolonged period of time. He also gets stiffness with driving. He says when he tries to get out of the car he feels like it is very weak and very stiff. His pain is increased with activity and weightbearing. He has decreasing activities of daily living due to pain in his left knee. He has pain with range of motion and limited motion due to his pain. Aggravating activities include walking, going up and down steps, driving, rest. He also does have night pain which wakes him up at night to reposition for comfort. When going up and down the steps he has to use handrails on the steps for safety. Prior treatments include nonsteroidal anti-inflammatory drugs such as Advil and Aleve. He is also on chronic oxycodone which she takes for his knees and back. He is previously had physical therapy for his knee with no significant improvement. He has also tried previous corticosteroid injections and viscous supplementation his left knee. He is also been going to the pain clinic over the past year for management of his pain due to his knees. He would like to stop going there and feels that at this point his pain is so bad that he would like to proceed with an elective left total knee arthroplasty. Denies any known injury to either knee. Denies any numbness or tingling. Past Medical/Surgical History 1. History of MT in 2010 2. Stent placement 2 in 2010 3. Bilateral knee arthroscopy in 2011 4. History of fractured vertebrae and 3 ribs last year 5. High [id number] 6. Carpal tunnel syndrome bilateral hands 7. Osteoarthritis 8. Borderline diabetic 9. Sleep apnea-does not use a CPAP. Family History Family history significant for heart disease, diabetes, and cancer. Social History He does not use a cane or walker to assist with angulation. Smokeless Tobacco Use: Yes (Daily) Alcohol Use: occasionally (He drinks per week) Marital Status: Housing status: lives with significant other (, Single level home) Immunizations History of Influenza Vaccine: No History of Tetanus Vaccine?: Yes History of Pneumococcal: No History of Hepatitis B Vaccine: No Allergies Coded Allergies: Statins (Verified Allergy, Unknown, MUSCLE ACHES, 03/13/17) Home Medications Scheduled Aspirin (Aspirin Ec), 81 MG PO QAM Duloxetine Hcl (Cymbalta), 60 MG PO HS Krill Oil (Krill Oil), 1 TAB PO QAM Lisinopril (Lisinopril), 1 TAB PO DAILY Oxycodone Hcl (Oxycontin), 15 MG PO QID Scheduled PRN Ibuprofen Tab (Advil), 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 Systems Constitutional: No fever, No chills, No weight loss, No fatigue Eyes: No worsening of vision, No eye pain, No redness, No diplopia ENT: No hearing loss, No sore throat, No tinnitus, No dental problems, No trouble swallowing Respiratory: No cough, No sputum, No wheezing, No shortness of breath, No dyspnea on exertion, No dyspnea at rest Cardiovascular: No chest pain, No edema, No claudication, No palpitations Abdomen: No pain, No nausea, No vomiting, No diarrhea, No constipation Musculoskeletal: + joint pain (bilateral knees), No muscle pain, No swelling, No calf pain Genitourinary - Male: No hematuria, No dysuria, No urinary frequency, No urinary urgency, No urinary hesitancy, No urinary retention Neurologic: No memory loss, No numbness/tingling, No balance problems Psychiatric: No depression symptoms, No anxiety Endocrine: No fatigue Hematologic / Lymphatic: No abnormal bleeding/bruising, No clotting problems Integumentary: No rash, No itch Allergic / Immunologic: No frequent infections, No poor healing Physical Exam Vital Signs Height is 5 feet 10 inches. Weight is 160 pounds General Appearance: WD/WN, no apparent distress Head: normocephalic, atraumatic Eyes: normal inspection, PERRL, EOMI ENT: normal ENT inspection, hearing grossly normal, TMs normal, pharynx normal Neck: supple, no adenopathy, thyroid normal, no carotid bruits, trachea midline Respiratory/Chest: chest non-tender, lungs clear, normal breath sounds, no respiratory distress, no accessory muscle use Cardiovascular: regular rate, rhythm, no edema, no murmur, normal peripheral pulses Abdomen/GI: normal bowel sounds, non tender, soft Back: normal inspection, normal range of motion Extremities/Musculoskelatal: normal inspection, no calf tenderness, normal capillary refill, no pedal edema, non-tender, + pertinent finding (Exam of left knee reveals no effusion today, medial joint line tenderness with palpation. Ligamentous exam is intact. Does have a varus deformity. Range of motion of his right knee is 0/10/125 and range of motion of his left knee is 0/10/125. Crepitation with range of motion. Intact straight leg raise.) Neurologic/Psych: no motor/sensory deficits, alert, normal mood/affect, normal reflexes, oriented x 3, + pertinent finding Skin: normal color, warm/dry, no rash Lymphatic: no adenopathy He ambulates with an antalgic gait. Diagnostics Laboratory Results As per [facility] EMR Diagnostic Radiology Radiology images: X-rays of his left knee reveal end-stage degenerative joint disease with [id number] in the medial compartment and osteophyte formation and subchondral sclerosis. CXR normal Impression Assessment and Plan Assessment: End-stage DJD left knee Plan: Patient is scheduled for an elective left total knee arthroplasty on April 07, [address] Eddie Morales at [facility]. Risks and complications of surgery were explained to the patient and include but are not limited to infection, pain, bleeding, stiffness, wound problems, weakness, incomplete relief of symptoms, hardware failure, wear, fracture, blood clots, embolisms, heart attack, stroke, and . Informed consent was obtained by Dr. Morales. He will have preadmission testing prior to surgery in which we will obtain a preoperative CBC, BMP, PT, PTT, type and screen, chest x-ray and EKG. Preoperative medical clearance from his family physician Dr. Elio Bejarano and his sales administrator Dr. Gao. We will use Lovenox 30 mg twice a day 4 weeks postoperatively for DVT prophylaxis. At time of discharge , he would like to go home with home health versus outpatient physical therapy. Post operative course was discussed. All questions were answered today and he knows to call with any further problems, questions, or concerns. Level of Care Med/Surg Resuscitation Status FULL RESUSCITATION Additional Copies To Elio Bejarano D.O.
[2017-04-08 09:05] VITALS: BMI 24.0
--- NOTE | 2017-05-22 14:41 | History and Physical ---
History & Physical Date & Time of Service: May 22, 2017 at 14:26 Chief Complaint: Right Knee Degenerative Joint Diseaes Primary Care Physician: Elio Bejarano D.O. History of Present Illness Source: patient The patient is a 61-year-old male who is scheduled for an elective Right total knee arthroplasty by Dr. Morales and May 26, 2017. His been having ongoing Right knee pain for the past 10 years. Has progressively worsened over the last 6-12 months. He states that most of his pain is on the front of his knee. His pain is bad for a very long time but has gradually worsened. He complains of a lot of stiffness in his Right knee, especially after sitting for prolonged period of time. He also gets stiffness with driving. He says when he tries to get out of the car he feels like it is very weak and very stiff. His pain is increased with activity and weightbearing. He has decreasing activities of daily living due to pain in his Right knee. He has pain with range of motion and limited motion due to his pain. Aggravating activities include walking, going up and down steps, driving, rest. He also does have night pain which wakes him up at night to reposition for comfort. When going up and down the steps he has to use handrails on the steps for safety. Prior treatments include nonsteroidal anti-inflammatory drugs such as Advil and Aleve. He is also on chronic oxycodone which she takes for his knees and back. He is previously had physical therapy for his knees with no significant improvement. He has also tried previous corticosteroid injections and viscous supplementation his Right knee. He is also been going to the pain clinic over the past year for management of his pain due to his knees. Denies any known injury to either knee. Denies any numbness or tingling. He had a successful left total knee arthroplasty by Dr. Morales and April 07, 2017. He is doing well with that and would like to proceed with elective right total knee arthroplasty. Past Medical/Surgical History 1. History of [place] in 2010 2. Some placement 2 in 2010 3. Bilateral knee arthroscopy in 2011 4. History of fractured vertebrae and 3 ribs last year 5. High [id number] 6. Carpal tunnel syndrome bilateral hands 7. Osteoarthritis 8. Borderline diabetic 9. Sleep apnea-does not use a CPAP machine. 10. Status post left total knee arthroplasty in April 07, 2017 Family History Significant for heart disease, diabetes, and cancer. Social History He does not use a cane or walker to assist with ambulation. He has been able to get rid of this since his last total knee arthroplasty. Smoking Status: Never Smoker Smokeless Tobacco Use: Yes (Daily) Alcohol Use: occasionally Marital Status: Housing status: lives with significant other (, Single level home) Occupational Status: employed Immunizations History of Influenza Vaccine: No History of Tetanus Vaccine?: Yes History of Pneumococcal: No History of Hepatitis B Vaccine: No Allergies Coded Allergies: Statins (Verified Adverse Reaction, Mild, MUSCLE ACHES, 04/14/17) Home Medications Scheduled Acetaminophen (Sb Non-Aspirin Extra Stre), 1,000 MG PO Q8H Aspirin (Aspirin Ec), 81 MG PO QAM Docusate Sodium (Docusate Sodium), 100 MG PO BID Duloxetine Hcl (Cymbalta), 60 MG PO HS Multiple Vitamin (Daily-Nikhil), 1 TAB PO QAM Oxycodone Hcl (Oxycontin), 15 MG PO QID Review of Systems Constitutional: No fever, No chills, No sweats, No weight loss Eyes: No worsening of vision, No redness ENT: No hearing loss, No sore throat, No tinnitus Respiratory: No cough, No sputum, No wheezing, No shortness of breath Cardiovascular: No chest pain, No edema, No palpitations Abdomen: No pain, No nausea, No vomiting, No diarrhea, No constipation Musculoskeletal: + joint pain (Right knee), + problem reported (Left knee doing well), No swelling, No calf pain Genitourinary - Male: No hematuria, No dysuria, No urinary frequency, No urinary hesitancy, No urinary retention, No urinary incontinence Neurologic: No memory loss, No numbness/tingling, No balance problems Psychiatric: + substance abuse (Chronic oxycodone use) Endocrine: No fatigue Hematologic / Lymphatic: No abnormal bleeding/bruising, No clotting problems Integumentary: No rash, No itch Allergic / Immunologic: No frequent infections, No poor healing Physical Exam General Appearance: WD/WN, no apparent distress Head: normocephalic, atraumatic Eyes: normal inspection, PERRL, EOMI ENT: normal ENT inspection, hearing grossly normal, TMs normal, pharynx normal Neck: supple, no adenopathy, thyroid normal, no carotid bruits, trachea midline Respiratory/Chest: chest non-tender, lungs clear, normal breath sounds, no respiratory distress, no accessory muscle use Cardiovascular: regular rate, rhythm, no edema, no murmur, normal peripheral pulses Abdomen/GI: normal bowel sounds, non tender, soft Back: normal inspection, normal range of motion Extremities/Musculoskelatal: normal inspection, no calf tenderness, normal capillary refill, no pedal edema, non-tender, + pertinent finding (Exam of Right knee reveals no effusion today, medial joint line tenderness with palpation. Ligamentous exam is intact. Does have a varus deformity. Range of motion of his right knee is 0/10/125. Crepitation with range of motion. Intact straight leg raise. Left knee incision is healed. Mild edema left knee. No significant joint effusion. Stable ligaments exam. Minimal warmth left knee. Full hip and ankle range of motion without discomfort. No distal edema or calf tenderness.) Neurologic/Psych: no motor/sensory deficits, alert, normal mood/affect, normal reflexes, oriented x 3, + pertinent finding Skin: normal color, warm/dry, no rash Lymphatic: no adenopathy He ambulates with an antalgic gait. Diagnostics Laboratory Results As per [facility] EMR Diagnostic Radiology Radiology images: X-rays of the left great knee reveal end-stage degenerative joint disease with [id number] in the medial compartment and osteophyte formation and subchondral sclerosis. CXR normal Impression Assessment and Plan Assessment: End-stage DJD Right knee Plan: Patient is scheduled for an elective Right total knee arthroplasty on May 26, [address] Eddie Morales at [facility]. Risks and complications of surgery were explained to the patient and include but are not limited to infection, pain, bleeding, stiffness, wound problems, weakness, incomplete relief of symptoms, hardware failure, wear, fracture, blood clots, embolisms, heart attack, stroke, and . Informed consent was obtained by Dr. Morales. He Does not require preadmission testing prior to surgery as he recently had his left total knee arthroplasty done. Medical clearance was obtained from his family physician Dr. Elio Bejarano in his management scientist Dr. Willis again prior to his left knee arthroplasty. We will use Lovenox 30 mg twice a day 4 weeks postoperatively for DVT prophylaxis. At time of discharge, he would like to go home with home health versus outpatient physical therapy. Post operative course was discussed. All questions were answered today and he knows to call with any further problems, questions, or concerns. Advanced Directives Existing Living Will: No Existing Power of [place]: No
[~2017-05-26] VITALS: Ht 180.3 cm; Wt 77.9 kg
[2017-05-26] VITALS (8 sets, daily range): BP systolic 123–159; BP diastolic 68–92; PULSE 64–95; TEMP 36.4–37.1; O2SAT 93–98; Ht 180.3 cm; Wt 77.9 kg
[~2017-05-26 05:03] MED LIST changes: +ACET-24 PO; -ACETAMINOPHEN 500 MG TAB PO SCH; -CEFAZOLIN 2000MG IV PUSH 10 ML IV SCH; +CLC100 PO; -CLONIDINE HCL 0.1 MG/24 HR TRANSDERM SYS TD SCH; -CeleBREX 200 MG CAP PO SCH; -DEXAMETHASONE 4 MG TAB PO SCH; -FAMOTIDINE 20 MG TAB PO SCH; -GABAPENTIN 300 MG CAP PO SCH; -IBUP-103 PO; -KRIL1CAP3 PO; -LACTATED RINGER'S 1000ML 1,000 ML IV SCH; -LACTATED RINGER'S 1000ML 500 ML IV ONE; -LACTATED RINGER'S 1000ML IV SCH; -LISI2.5T5 PO; -METOCLOPRAMIDE HCL 10 MG TAB PO SCH; +MULT-890 PO; -OXYCODONE HCL 10 MG TABCR (OXYCONTIN) PO SCH; -TRAMADOL HCL 50 MG TAB PO SCH
[2017-05-26] MEDS ORDERED: LACTATED RINGER'S 1000ML 500 ML IV ONE (06:00)
[2017-05-26] MEDS ORDERED: LACTATED RINGER'S 1000ML IV SCH (06:00)
[2017-05-26] MEDS ORDERED: FAMOTIDINE 20 MG TAB PO SCH (06:00)
[2017-05-26] MEDS ORDERED: LACTATED RINGER'S 1000ML 1,000 ML IV SCH (06:00)
[2017-05-26] MEDS ORDERED: METOCLOPRAMIDE HCL 10 MG TAB PO SCH (06:00)
[2017-05-26] MEDS ORDERED: CeleBREX 200 MG CAP PO SCH (06:00)
[2017-05-26] MEDS ORDERED: ACETAMINOPHEN 500 MG TAB PO SCH (06:00)
[2017-05-26] MEDS ORDERED: ROPIVACAINE 5MG/ML 30 ML 150 MG, BUPIVACAINE/EPINEPHR 0.5% MPF 30 ML, KETOROLAC TROMETH... INFIL SCH ×12 (06:00)
[2017-05-26] MEDS ORDERED: OXYCODONE HCL 10 MG TABCR (OXYCONTIN) PO SCH (06:00)
[2017-05-26] MEDS ORDERED: CEFAZOLIN 2000MG IV PUSH 10 ML IV SCH (06:00)
[2017-05-26] MEDS ORDERED: CLONIDINE HCL 0.1 MG/24 HR TRANSDERM SYS TD SCH (06:00)
[2017-05-26] MEDS ORDERED: GABAPENTIN 300 MG CAP PO SCH (06:00)
[2017-05-26] MEDS ORDERED: TRAMADOL HCL 50 MG TAB PO SCH (06:00)
[2017-05-26] MEDS ORDERED: DEXAMETHASONE 4 MG TAB PO SCH (06:00)
[2017-05-26] MEDS ORDERED: BUPIVACAINE 0.25% 30 ML VIAL ONE (06:24)
[2017-05-26] MEDS ORDERED: BUPIVACAINE 0.5 % 5 MG/1 ML PF 10ML VIAL ONE (06:24)
[2017-05-26] MEDS: TRANEXAMIC ACID INJ 1,000 MG in SYRINGE 0 ML IV SCH ×2 (06:30→06:42)
[2017-05-26] MEDS ORDERED: ORTHO JOINT ANESTHETIC ONE (06:39)
[2017-05-26] MEDS ORDERED: POVIDONE-IODINE OP SOLN 30 ML BTL ONE (06:39)
[2017-05-26] MEDS ORDERED: BACITRACIN 50000 UNIT VIAL ONE (06:39)
[2017-05-26] MEDS ORDERED: MIDAZOLAM HCL 1 MG/ML 2ML VIAL ONE ×4 (06:45→08:24)
[2017-05-26] MEDS ORDERED: FENTANYL CITRATE INJ 50 MCG/1 ML 2 ML VIAL ONE ×2 (06:45→06:49)
[2017-05-26] MEDS ORDERED: PROMETHAZINE HCL INJ 12.5 MG in SODIUM CHLORIDE 0.9% 50ML 50 ML IV PRN (07:30)
[2017-05-26] MEDS ORDERED: HYDROmorphone INJ 1 MG/ML SYR IV PRN (07:30)
[2017-05-26] MEDS ORDERED: PHENYLEPHRINE 100MCG/ML 5ML SYR IV PRN (07:30)
[2017-05-26] MEDS ORDERED: ONDANSETRON INJ 2 MG/ML 2 ML VIAL IV PRN ×2 (07:30→10:15)
[2017-05-26] MEDS ORDERED: EpHEDrine SULFATE INJ 50 MG/ML AMP IV PRN (07:30)
[2017-05-26] MEDS ORDERED: FENTANYL CITRATE INJ 50 MCG/1 ML 2 ML VIAL IV PRN (07:30)
[2017-05-26] MEDS ORDERED: ATROPINE SULFATE 0.1 MG/ML 5ML SYR IV PRN (07:30)
[2017-05-26] MEDS ORDERED: PROPOFOL IV EMULSION 10 MG/ML 20 ML VIAL IV ONE (09:37)
--- NOTE | 2017-05-26 09:57 | [facility] Post Operative Brief Note ---
Immediate Operative Summary Operative Date May 26, 2017. Pre-Operative Diagnosis End-Stage Degenerative Joint Disease Right Knee Post-Operative Diagnosis End-Stage Degenerative Joint Disease Right Knee Procedure(s) Performed Right Total Knee Arthroplasty Surgeon Dr. Eddie Morales Interlocking Tower Operator Surgeon(s) Dr. Patric Walker and Rosie Albright PA-C Estimated Blood Loss 25ML Findings arthritis Specimens Permanent Solution: A. Right Knee Bone and Tissue Drains 0 Anesthesia spinal with sedation Complication(s) None Disposition Recovery Room / PACU
[2017-05-26] MEDS ORDERED: DiphenhydrAMINE HCL 50 MG/ML VIAL IV PRN (10:15)
[2017-05-26] MEDS ORDERED: BISACODYL 10 MG SUPP PR PRN (10:15)
[2017-05-26] MEDS ORDERED: METOCLOPRAMIDE HCL INJ 5 MG/ML 2 ML VIAL IV PRN (10:15)
[2017-05-26] MEDS ORDERED: TAMSULOSIN HCL 0.4 MG CAP PO PRN (10:15)
[2017-05-26] MEDS ORDERED: MAGNESIUM HYDROXIDE SUSP 30 ML UDC PO PRN (10:15)
[2017-05-26] MEDS ORDERED: SOD PHOSPHATE/SOD BIPHOSPHATE ENEMA 132 ML BTL PR PRN (10:15)
[2017-05-26] MEDS ORDERED: CEFAZOLIN IV 1,000 MG in DEXTROSE 5% 50ML 50 ML IV SCH (10:15)
--- NOTE | 2017-05-26 10:32 | [facility] Operative Report ---
Operative Report Operative Date May 26, 2017. Pre-Operative Diagnosis End-Stage Degenerative Joint Disease Right Knee Post-Operative Diagnosis End-Stage Degenerative Joint Disease Right Knee Procedure(s) Performed Right Total Knee Arthroplasty Surgeon Dr. Eddie Morales Corrugator Machine Operator Surgeon(s) Dr. Patric Walker and Rosie Albright PA-C Estimated Blood Loss 25ML Findings DJD right knee Specimens Permanent Solution: A. Right Knee Bone and Tissue Drains 0 Anesthesia spinal with sedation Complication(s) None Disposition Recovery Room / PACU Indications Patient is a 61 year old male with progressively worsening right knee pain. Failed conservative treatment which included PT, corticosteroids and viscosupplementation. He continued to have right knee pain that interfered with his daily activities. Surgical intervention recommended, he agreed to proceed. Risks/complications discussed, informed consent obtained. Description of Procedure Patient was taken to the operating room, placed under spinal anesthesia with peripheral nerve block. He was given IV Ancef for surgical prophylaxis. Time out performed, prepped and draped in routine sterile fashion. I was present during the entire case, please see Dr. Morales's operative report for further detail. Patient was awakened and taken to the recovery room in stable condition. I attest to the content of the Intraoperative Record and any orders documented therein. Any exceptions are noted below.
--- NOTE | 2017-05-26 10:38 | Anesthesiology Progress Note ---
Anesthesia Post Op Note Date & Time May 26, 2017 at 10:38 Vital Signs Pain Intensity: 0 Vital Signs Past 12 Hours Date Time Temp Pulse Resp B/P (MAP) Pulse Ox O2 Delivery O2 Flow Rate FiO2 05/26/17 10:35 70 16 127/80 98 Nasal Cannula 2 05/26/17 10:25 67 16 125/77 98 Nasal Cannula 3 05/26/17 10:16 36.3 58 12 121/87 97 Nasal Cannula 3 05/26/17 05:57 36.6 69 16 147/92 95 Room Air Notes Mental Status: alert / awake / arousable, participated in evaluation Pt Amnestic to Procedure: Yes Nausea / Vomiting: adequately controlled Pain: adequately controlled Airway Patency, RR, SpO2: stable & adequate BP & HR: stable & adequate Hydration State: stable & adequate Neuraxial Anesthesia: was administered, sensory block is resolving Anesthetic Complications: no major complications apparent Doing well, comfortable, VSS.
--- NOTE | 2017-05-26 10:38 | DIAGNOSTIC IMAGING REPORT ---
R KNEE 1 OR 2 VIEWS ROUTINE HISTORY: 61 years-old Male AP/LATERAL IN PACU RIGHT KNEE status post right knee arthroplasty. Right knee osteoarthritis COMPARISON: Right knee radiographs 10/01/2016 TECHNIQUE: Portable AP and lateral knees of the right knee FINDINGS: Postoperative changes compatible with right knee total joint arthroplasty and patella resurfacing. Alignment is satisfactory. No periprosthetic fracture or retained foreign body. Ventral midline jessie are noted in addition to expected postsurgical soft tissue swelling and deep tissue air. IMPRESSION: Status post right knee total joint arthroplasty and patellar resurfacing without complication. The above report was generated using voice recognition software. It may contain grammatical, syntax or spelling errors. Electronically signed by: Scott Montilla M.D. 05/26/2017 10:37 AM Dictated Date/Time: 05/26/2017 10:35 AM
[2017-05-26] MEDS ORDERED: PHARMACY GLYCEMIC MGMT CONSULT PRN (10:53)
--- NOTE | 2017-05-26 11:28 | OPERATIVE REPORT ---
DATE OF OPERATION: 05/26/2017 PREOPERATIVE DIAGNOSIS: Osteoarthritis of the right knee. POSTOPERATIVE DIAGNOSIS: Same. PROCEDURE PERFORMED: Cemented right total knee arthroplasty. SURGEON: Dr. Morales. SANDER AND BUFFER: Patric Walker. SECOND SANDER AND BUFFER: Rosie Albright PA-C. ANESTHESIA: Spinal with sedation. INDICATIONS FOR PROCEDURE: The patient is a 61-year-old male who has severe osteoarthritis of both knees. He is status post a left knee replacement 2 months ago, doing well. He would like to have his other knee done. Treatment options, risks, benefits, rehab and recovery have been discussed. OPERATION AND FINDINGS: PROCEDURE IN DETAIL: Informed consent was obtained. The patient was identified as Jaime Bagley. He identified the operative site as the right knee. I marked it with my initials and a preoperative surgical timeout was performed. A preop dose of IV antibiotics was given. He was taken to the operating room and positioned supine on the OR table. A bump was placed under the right hip and under the right calf for positioning. A tourniquet was applied to the right leg. Limb was then prepped and draped in the usual sterile fashion. DVT prophylaxis intraoperatively with foot pumps, postoperatively with early mobility, mechanical devices and Lovenox. The exam under anesthesia revealed range of motion 0/10/120. He had no laxity to cruciate or collateral stressing. There is no effusion. The entire limb was prepped from tourniquet to the toes. Bony prominences were inspected and padded. The contralateral knee was examined. The range was 0/10/110. I performed a gentle manipulation into extension, maybe improved that a couple degrees. Gentle manipulation into flexion with a short lever arm improving flexion to about 120. The left knee was stable. The limb was exsanguinated with the Esmarch, tourniquet inflated to 225 mmHg. A midline longitudinal incision was made followed by a medial parapatellar arthrotomy. There was some prepatellar bursitis which was excised thoroughly. An extensile medial release was performed. A deficient medial meniscus was identified and removed. The cruciate ligaments were resected. The intact lateral meniscus was also removed. The retropatellar fat pad was removed and soft tissue on the anterior aspect of the distal femur was excised. The synovial reflection in the lateral gutter was also released. Care was taken to protect the patellar tendon as he had a partial avulsion on the other side during exposure. I prophylactically inserted a 2.4 mm pin into the tibial tubercle, cut it and bent it so it would be out of the way. Marginal osteophytes were removed throughout the knee. There were grade 1 and 2 changes noted on the patella with minimal marginal osteophytes. The lateral compartment was grade 1 change at most. The medial compartment showed large areas of eburnated bone denuded of cartilage with significant peripheral osteophytes. An extensile medial release was performed releasing the superficial and deep MCL as well as the gastrocnemius medial head. A towboat pilot hole was drilled into the proximal tibia and the intramedullary alignment glenn was inserted. The guide was aligned to the medial third of the tibial tubercle and set to resect 10 mm off of the lateral side corresponding to a 2 mm cut medially. This was pinned into place. The extramedullary alignment glenn confirmed perhaps a trace bit of posterior slope, which I accepted and a neutral cut bisecting the ankle joint and intersecting the second ray with the foot in nonweightbearing position. This cut was made and the tibia was sized to a 5. A towboat pilot hole was drilled in the distal femur. Intramedullary alignment glenn was inserted, set to cut in 6 degrees valgus right knee at a 13 mm thick cut. This cut was made and the extension gap was slightly lax 10 and a slightly tight 12.5 with a little bit of asymmetric lateral laxity which was improved with further posteromedial release and removal of medial osteophytes. Whitesides line and transepicondylar axis were marked out. The femoral sizing block was applied and sized to a 5. The external rotation drill holes were made which matched the epicondylar axis. The flexion gap was rectangular. The 5 anterior down cutting block was applied. The tiffani wing was utilized. The cuts were made and the flexion gap was a symmetric 10 and tight 12.5. The box cutting guide was applied, lateralized, pinned into place and that cut was made. The posterior joint was explored and there were no notable osteophytes present. The tibia was prepared with the drill punch and keel. The tibial tray was lateralized. Trialing with the 10 and 12.5 was done. The 12.5 was very difficult to get into the knee. It did provide good stability throughout. There was perhaps a trace loss of extension. The 10 seemed to have a slight bit better extension and slightly more lax laterally in mid position. The patella measured 26 mm in thickness and the caliper was set to preserve 14 mm of bone. This cut was then made. Patella was sized to a 41, which was distalized and medialized aligned appropriately and the lug holes were drilled. Patellar tracking was fine with the no hands technique. The Ortho joint mix was injected into the back of the knee. The canals were plugged and bony surfaces were drilled where eburnated and copiously lavaged with pulsed saline to clean the interstices of the bone. Two bags of Simplex P cement were then mixed and while in a doughy working state, the femur, tibia and patella were cemented in place with the knee held in full extension with a 10 spacer. The remainder of the Ortho joint mix was injected followed by Betadine lavage irrigation for approximately 3 minutes. Once the cement had hardened, the tourniquet was let down after 110 minutes of inflation. Meticulous hemostasis was performed. TXA was given preoperatively and postoperatively. I trialed again with a 10 and 12.5. I could not get the 12.5 spacer into the knee. The 10 showed full extension. There was 1+ laxity in the LCL mid position. The knee did not gap open in full extension on the lateral side. There was trace LCL laxity in 90 degrees. The MCL was stable throughout. Patellar tracking was fine with the no hands technique. I elected to go with 10 spacer given his history of loss of extension on the contralateral side. This hopefully will make it easier for him to get out to full extension. Composite patellar thickness was 26 mm. Hosford assisted flexion with the extensor mechanism closed was 120 degrees. Irrigation was performed. The back of the knee was inspected for bleeding and extraneous cement was removed. The final polyethylene component was inserted. The extensor mechanism was closed above the equator of the patella with interrupted #2 FiberWire, below the equator with running and interrupted #1 Vicryl. The skin was closed with 0 and 2-0 Vicryls and jessie. A soft sterile dressing was applied along with a full length Jevon wrap, Xeroform, 4 x 4's, and ABD. He was then awakened from anesthesia without difficulty and taken to recovery room in stable condition. The resected bone was sent for specimen. There were no complications. Counts were correct at the end of the case. The tibial tubercle was not avulsed and the prophylactic pin was removed. Blood loss was 25 mL. At the conclusion of the operation, I spoke to the patient's family and informed them of my findings. Postoperative instructions were given. He will be rehabilitated according to the total knee protocol and will have Lovenox starting this evening. Components inserted were the [employer] P[employer] Sigma rotating platform, posterior stabilized knee, size 5 x 10 mm thick rotating platform insert, 41 mm 3 peg oval dome patella, a size 5 keeled mobile bearing tray and a size 5 right posterior stabilized femur. I attest to the content of the Intraoperative Record and any orders documented therein. Any exception s are noted below.
[2017-05-26] MEDS ORDERED: D5W AND 1/2NSS + 20MEQ KCL 1,000 ML IV SCH (12:30)
[2017-05-26] MEDS: KETOROLAC TROMETHAMINE 30 MG/ML VIAL IV. SCH ×3 (12:46→23:29)
[2017-05-26] MEDS: SODIUM CHLORIDE 0.9% 1000ML 1,000 ML IV SCH ×2 (13:56→23:28)
[2017-05-26] MEDS: ACETAMINOPHEN 500 MG TAB PO SCH ×2 (13:56→22:03)
[2017-05-26] MEDS: OXYCODONE HCL IR 5 MG TAB (IMMEDIATE RELEASE) PO PRN (14:00)
[2017-05-26] MEDS ORDERED: GLUCOSE 40% GEL 15 GM TUBE PO PRN (14:30)
[2017-05-26] MEDS ORDERED: DEXTROSE 50% 50 ML SYR IV PRN (14:30)
[2017-05-26] MEDS ORDERED: GLUCOSE 10 TABS/TUBE PO PRN (14:30)
[2017-05-26] MEDS ORDERED: GLUCAGON FOR INJ 1 MG VIAL SQ PRN (14:30)
--- NOTE | 2017-05-26 14:34 | PROGRESS NOTE ---
DATE: 05/26/2017 DATE: 05/26/2017 He is resting comfortably. Postop pain is well controlled. Block is still working. He is afebrile. His vital signs are stable. Dorsalis pedis is 2+. Foot is warm. He does not have any motor function and sensation is significantly impaired. Dressing is clean and dry. X-rays show good positioning of the total knee arthroplasty without complication. We discussed the findings at surgery. PLAN: For routine postoperative care. We have reviewed the pain regimen with he and his nurse and start Lovenox this evening.
--- NOTE | 2017-05-26 14:36 | Pharmacy Progress Note ---
Glycemic Control Intl Consult Date of Service May 26, 2017. Scope Glycemic Pharmacist consulted by Yissel Albright on 05/26/17 for glycemic control and to write orders per [facility] inpatient glycemic control protocol Objective Weight (Kilograms): 77.900 Accuchecks BSG (last 24hrs): Test 05/26/17 06:18 05/26/17 10:20 05/26/17 12:02 Bedside Glucose 98 mg/dl (70-99) 132 mg/dl (70-99) 124 mg/dl (70-99) Recent Pertinent Medications Outpatient Anti-diabetic Regimen: * N/A - prediabetes Risk Factors for Insulin Resistance: * Steroids * Recent Surgery * Diet Assessment & Plan ASSESSMENT: * 61yo male with pre-diabetes, not on any antidiabetic medications as an outpatient. * Pt received PO dexamethasone pre-op and will receive one dose POD#1 AM. * Steroids have their most profound effect on post-prandial hyperglycemia. Aggressive CF/CR needed * May need basal insulin for sustained hyperglycemia * A1c unknown - will order per protocol. PLAN FOR INPATIENT GLYCEMIC CONTROL: Start weight based SQ basal bolus insulin regimen and titrate based on BSG trends * Basal insulin: per weight/stress = 1-2 do not want to cover steroid induced hyperglycemia with basal insulin * Lantus 15 units SQ Q24hrs if BSG > 180 mg/dl * Bolus insulin: per weight/stress = 3 for steroid induced post-prandial hyperglycemia. * NovoLog per scale ACHS or Q6hrs while NPO * Goal Range: Low 110 mg/dL - High 140 mg/dL * Correction Factor: 20 mg/dL/unit * Nutritional / Prandial insulin per carb ratio of 1 unit per 7 grams CHO consumed * A1c with AM labs. * Please note that the plan above was derived based on current level of insulin resistance and hospital stress. These recommendations are appropriate for inpatient admission only. Plan of care upon discharge will need to be reassessed to avoid potential outpatient hypo/hyperglycemia. Thank you.
[2017-05-26] MEDS: OXYCODONE HCL IR 5 MG TAB (IMMEDIATE RELEASE) PO SCH ×3 (14:57→23:29)
[2017-05-26] MEDS: CEFAZOLIN IV 1,000 MG in SYRINGE 0 ML IV SCH ×2 (16:22→23:28)
[2017-05-26] MEDS: TRAMADOL HCL 50 MG TAB PO PRN (16:35)
[2017-05-26] MEDS ORDERED: INSULIN GLARGINE SOLOSTAR 100 UNITS/ML 3 ML PEN SC SCH ×2 (16:45→21:00)
[2017-05-26] MEDS: INSULIN ASPART 100 UNITS/ML 3 ML PEN SC SCH ×2 (18:52→21:18)
[2017-05-26] MEDS: ENOXAPARIN 30 MG/0.3 ML SYR SQ SCH (20:04)
[2017-05-26] MEDS: DULOXETINE HCL 60 MG CAP PO SCH (21:14)
[2017-05-26] MEDS: DOCUSATE SODIUM 100 MG CAP PO SCH (21:14)
[2017-05-26] MEDS: OXYCODONE HCL 10 MG TABCR (OXYCONTIN) PO SCH (21:19)
[2017-05-27] MEDS: OXYCODONE HCL IR 5 MG TAB (IMMEDIATE RELEASE) PO PRN (02:39)
[2017-05-27 03:38] VITALS: BP 133/69; PULSE 79; TEMP 36.9; O2SAT 94
[2017-05-27] MEDS: KETOROLAC TROMETHAMINE 30 MG/ML VIAL IV. SCH (05:33)
[2017-05-27] MEDS: ACETAMINOPHEN 500 MG TAB PO SCH ×3 (05:33→21:35)
[2017-05-27] MEDS: OXYCODONE HCL IR 5 MG TAB (IMMEDIATE RELEASE) PO SCH ×3 (05:34→18:17)
[2017-05-27 06:10] LABS: HEMATOCRIT 29.4 % (42-52); MEAN CELL VOLUME 84.5 fL (80-100); MEAN CORPUSCULAR HEMOGLOBIN 27.6 pg (25-34); MEAN CORPUSCULAR HGB CONC 32.7 g/dl (32-36); MEAN PLATELET VOLUME 10.4 fL (7.4-10.4); PLATELET COUNT 215 K/uL (130-400); RED BLOOD COUNT 3.48 M/uL (4.7-6.1); WHITE BLOOD COUNT 10.37 K/uL (4.8-10.8)
[2017-05-27 06:34] LABS: BUN/CREATININE RATIO 19.6 (10-20); CALCIUM 7.9 mg/dl (8.5-10.1); CREATININE 0.6 mg/dl (0.60-1.40); POTASSIUM 3.7 mmol/L (3.5-5.1)
[2017-05-27] MEDS ORDERED: DEXAMETHASONE 4 MG TAB PO SCH (07:30)
[2017-05-27 07:43] LABS: ESTIMATED AVERAGE GLUCOSE 126 mg/dl; HA1C FLAG Normal (Normal)
[2017-05-27 07:51] VITALS: BP 115/64; PULSE 76; TEMP 36.5; O2SAT 95
[2017-05-27] MEDS: ENOXAPARIN 30 MG/0.3 ML SYR SQ SCH ×2 (08:06→19:40)
--- NOTE | 2017-05-27 08:46 | Orthopedic Progress Note ---
Orthopedic Progress Note Date of Service May 27, 2017. Subjective Post OP Day: 1 Reports: feeling well, pain controlled w PO medications, Denies: complaints, chest pain, SOB, nausea / vomiting, light headedness, calf pain Additional Notes: States doing better this time around. Feels good with walking. States that he feels that he can move his knee more than last time. He states that he had some drainage up near his thigh last night, dressing was reinforced once. No more drainage throughout the night. Objective calves soft nontender, N/V intact, capillary refill less than 2 sec., dressing C /D/I, A&O x3, toes mobile Dressings reinforced. No drainage visible on dressings at this time. Ice pack on right knee. Distal pulses 1+, cap refill brisk. Moves toes and ankle without pain. Date Time Temp Pulse Resp B/P (MAP) Pulse Ox O2 Delivery O2 Flow Rate FiO2 05/27/17 07:51 36.5 76 16 115/64 (81) 95 Room Air 05/27/17 07:13 Room Air 05/27/17 03:38 36.9 79 16 133/69 (90) 94 Room Air 05/26/17 23:51 Room Air 05/26/17 23:34 37.0 83 16 135/72 (93) 94 Room Air 05/26/17 19:29 37.1 85 18 123/68 (86) 93 Room Air 05/26/17 15:06 36.9 95 18 156/87 (110) 95 Nasal Cannula 2.0 05/26/17 13:52 80 18 147/87 (107) 98 05/26/17 12:17 78 18 151/85 (107) 05/26/17 11:45 36.4 68 16 159/85 (109) 98 Nasal Cannula 2.0 05/26/17 11:15 96 Nasal Cannula 2.0 05/26/17 11:15 96 Nasal Cannula 2.0 05/26/17 11:15 36.5 64 16 131/74 (93) 96 Nasal Cannula 2.0 05/26/17 11:00 59 16 122/82 98 Nasal Cannula 2 05/26/17 10:45 36.5 62 16 132/78 98 Nasal Cannula 2 05/26/17 10:35 70 16 127/80 98 Nasal Cannula 2 05/26/17 10:25 67 16 125/77 98 Nasal Cannula 3 05/26/17 10:16 36.3 58 12 121/87 97 Nasal Cannula 3 Laboratory Results 24 Hours: Test 05/27/17 05:44 Hematocrit 29.4 % Hemoglobin 9.6 g/dL Assessment & Plan Assessment: POD 1 - right total knee replacement Plan: Out of bed, weightbearing as tolerated right lower extremity with the assistance of a walker. PT/OT today. Pain controlled with ordered medications. Regular diet as ordered. H&H stable, we'll continue to monitor during inpatient stay. Lovenox 30 mg twice a day 28 days for DVT prophylaxis Teds and foot pumps for DVT prophylaxis. We'll discuss findings with Dr. Morales Plans for discharge to home with outpatient physical therapy on , 2016. Discharge Planning Discharge Planning: home with oppt Pain Management: Oxycontin, Ultram, PO Tylenol, Oxy IR DVT Prophylaxis: TEDs, Lovenox (30mg po BID x 28 days) Therapy: Physical Therapy
[2017-05-27 08:48] VITALS: O2SAT 95
[2017-05-27] MEDS ORDERED: LVNIS30 SQ (08:50)
[2017-05-27] MEDS ORDERED: RXC5 PO (08:50)
[2017-05-27] MEDS ORDERED: MULT-890 PO (08:50)
[2017-05-27] MEDS ORDERED: OXYSR10 PO (08:50)
[2017-05-27] MEDS ORDERED: ULT50X PO (08:50)
[2017-05-27] MEDS ORDERED: INSULIN GLARGINE SOLOSTAR 100 UNITS/ML 3 ML PEN SC ONE (09:00)
[2017-05-27] MEDS: INSULIN ASPART 100 UNITS/ML 3 ML PEN SC SCH ×4 (09:08→21:47)
[2017-05-27] MEDS: PANTOprazole SOD 40 MG TAB PO SCH (09:09)
[2017-05-27] MEDS: OXYCODONE HCL 10 MG TABCR (OXYCONTIN) PO SCH ×2 (09:09→21:33)
[2017-05-27] MEDS: ASPIRIN 81 MG ECTAB PO SCH (09:09)
[2017-05-27] MEDS: MULTIVITAMIN TAB PO SCH (09:09)
[2017-05-27] MEDS: DOCUSATE SODIUM 100 MG CAP PO SCH ×2 (09:09→21:34)
[2017-05-27] MEDS: SODIUM CHLORIDE 0.9% 1000ML 1,000 ML IV SCH (09:22)
[2017-05-27] MEDS: TRAMADOL HCL 50 MG TAB PO PRN (09:24)
--- NOTE | 2017-05-27 11:24 | Pharmacy Progress Note ---
Glycemic Control Progress Note Date of Service May 27, 2017. Scope Glycemic Pharmacist consulted for glycemic control to write orders per [facility] inpatient glycemic control protocol. Objective Accuchecks BSG (last 24hrs): Test 05/26/17 12:02 05/26/17 14:15 05/26/17 17:04 05/26/17 20:42 Bedside Glucose 124 mg/dl (70-99) 228 mg/dl (70-99) 187 mg/dl (70-99) 144 mg/dl (70-99) Test 05/27/17 05:44 05/27/17 08:05 Random Glucose 159 mg/dl (70-99) Bedside Glucose 105 mg/dl (70-99) HbA1c: Test 05/27/17 05:44 Hemoglobin A1c 6.0 % (4.5-5.6) H Recent Pertinent Medications The patient is currently receiving: * Basal insulin: Lantus 15 units x 1 dose yesterday at supper * Correctional Insulin: Novolog Correction per scale ACHS Goal Range: Low 110 mg/dL - High 140 mg/dL Correction Factor: 30 mg/dL/unit * Prandial insulin: Per carb ratio of 1 unit per -- grams CHO consumed Outpatient Anti-Diabetic Meds none Assessment & Plan ASSESSMENT: * See progress note from 05/26/17 for more background info, in short: * Pt receiving SQ basal bolus insulin regimen for hyperglycemia secondary to POD 1 for knee surgery, dexamethasone 8 mg PO x 1 preoperatively and today * Patient is currently receiving an average of 18 units of insulin per day * 15 units of basal insulin * 3 units of prandial/correctional insulin * BSGs ranging 124 - 187 mg/dl over the past 24hrs * Changes needed to insulin regimen: * AM Fasting BSG = 159 mg/dl. This is slightly above goal range for patient based on inpatient targets and co-morbidities. Will give additional dose of Lantus 15 units this morning for dexamethasone. Scale available for evening with 0 dose and 1/2 of current dose. Scale available in the morning in case effects of steroids are prolonged. * Post-prandial BSGs are elevated. Tightened patient to weight based stress of 3 for breakfast. Patient will most likely require loosening later today depending on trend at lunchtime. * Total daily dose = ~25-30 units. Continue current regimen, loosen as appropriate. * Additional notes / comments: PLAN FOR INPATIENT GLYCEMIC CONTROL: * Lantus 15 units SQ x 1 then 0-7 units tonight. Lantus 10 units if blood sugar over 160 mg/dL available after tonight. * TIGHTENING correction factor to 20 mg/dl/unit * TIGHTENING carb ratio to 1 unit per 7 grams CHO consumed * Continuing goal range of Low 110 mg/dL - High 140 mg/dL RECOMMENDATIONS FOR DISCHARGE: * Patient has pre-diabetes currently ... recommend lifestyle modifications and monitor HbA1C. Thank you.
[2017-05-27 11:39] VITALS: BP 139/76; PULSE 79; TEMP 36.7; O2SAT 95
--- NOTE | 2017-05-27 12:53 | Anesthesiology Progress Note ---
Anesthesia Post Op Note Date & Time May 27, 2017 at 12:52 Vital Signs Vital Signs Past 12 Hours Date Time Temp Pulse Resp B/P (MAP) Pulse Ox O2 Delivery O2 Flow Rate FiO2 05/27/17 11:39 36.7 79 16 139/76 (97) 95 Room Air 05/27/17 08:48 95 Room Air 05/27/17 07:51 36.5 76 16 115/64 (81) 95 Room Air 05/27/17 07:13 Room Air 05/27/17 03:38 36.9 79 16 133/69 (90) 94 Room Air Notes Neuraxial Anesthesia: sensory block resolved
--- NOTE | 2017-05-27 12:53 | Discharge Instructions ---
Discharge Instructions Date of Service May 27, 2017. Admission Reason for Admission: Right Knee Degenerative Joint Disease Discharge Discharge Diagnosis / Problem: Right knee degenerative joint disease Discharge Goals Goal(s): Decrease discomfort, Improve function, Increase independence Activity Recommendations Activity Limitations: per Instructions/Follow-up section Weightbearing Status: Left weightbearing (as tolerated), Right weightbearing ( as tolerated) . Instructions / Follow-Up Instructions / Follow-Up New Medicine: * You will likely be taking one or more of these medications: 1. Lovenox - You will be on Lovenox for 4 weeks after surgery to prevent blood clots. Aspirin, 81 mg is OK To take while on Lovenox. 2. Oxycontin - Take one every 12 hours 5 days 3. Oxycodone IR - Take, as directed, when you need it, every four to six hours to control your pain, Take a Regularly scheduled 15 mg every 6 hours for pain, and take oxycodone IR 10 mg by mouth every 6 hours as needed for breakthrough pain. 4. Colace & Senokot - Take to prevent constipation which can be caused by narcotics. These can be bought [id number] at the pharmacy 5. Your also given a prescription for tramadol. Take, as directed, one you need it, every 4-6 hours to control your pain. You may take in between the oxycodone IR and the OxyContin as needed for pain. If it does not help her pain , do not take it. * The most common side effects of pain medicine and iron are nausea and constipation. If nausea or constipation is too much of a problem or if you have any questions about your new medicines or doses, call [facility] at . We will try to help you manage these issues. VERY IMPORTANT TO READ AND REVIEW" Blood Clots and Blood Thinning Medicine: * You are given Lovenox during the immediate post-operative period to lessen the risk of blood clots forming in your legs and/or lungs. Lovenox is usually given for 4 weeks after surgery. * You will be asked to get a CBC on Thursday or Thursday after surgery to check her blood count and platelet count due to recent surgery and being on the Lovenox anticoagulation. Physical Therapy: * Do your physical therapy at home. These are the exercises you learned while in the hospital (quad sets, leg raises, calf pumps, gluteal squeezes, knee bending, and heel props.) You should do these exercises 3-4 times per day. * You will either go to inpatient rehab ([facility]), home with Home Therapy and nursing or home with outpatient rehab. You should do rehab with the therapist 2-3 times per week. You should do therapy on your own daily. * You may bear full weight on your leg with crutches or walker unless otherwise advised. Home Exercise: * You were shown a series of exercises (heel props, heel slides, etc.) in the hospital. Do these exercises three to four times each day including the exercises you were shown in physical therapy. Walking: * You may be up for short periods of time. Standing and walking for 1-2 hours at a time is usually okay. You should not stand or walk for excessive periods of time as this may cause increased pain and swelling. SELF CARE INSTRUCTIONS AFTER TOTAL KNEE REPLACEMENT A. You may need to continue a physical therapy program after discharge from the hospital. There are several options available to you. Your doctor will assist you in selecting the best one for you. 1. An out-patient facility 2 to 3 times a week for therapy or home therapy. 2. Continue working on all exercises taught to you in the hospital. Your goals should be to increase bending of your knee to 90 degrees and beyond and to fully straighten your knee. B. Your therapist will notify you when you are able to progress from a walker to a cane. C. Wear TEDS as much as possible.~ They may be removed at night for laundering. D. Do not place a pillow behind your knee when resting. A pillow at your ankle is okay. E. Ice your knee 15-20 minutes every 2-3 hours and elevate it above the level of your heart. F. You may shower on the fourth day after surgery using regular soap and water. Do not submerge until the wound is completely healed (approximately 2 weeks ). Until the fourth day after surgery, cover the incision/bandage with a bag or plastic wrap. G. Anyone who is touching your surgical incision area should wash their hands and wear gloves. H. Keep your incision covered with gauze pads under the JASON hose until it is dry. I. Keep this Silverlon dressing on your right knee until Thursday05/31/17. You may shower with this dressing in place. Do not remove dressing to shower. If the dressing falls off prior to 7 days, then redressed with a light gauze pad if needed. If dry than no dressings are needed. VERY IMPORTANT TO READ AND REVIEW A. YOU WILL BE GIVEN AN ORDER AT DISCHARGE FOR CBC (BLOOD WORK). PLEASE HAVE THIS DONE INSTRUCTED. PLEASE CALL OUR OFFICE AFTER YOUR BLOODWORK IS COMPLETE SO WE CAN TRACK YOUR RESULTS. IF YOU ARE GOING TO OUTPATIENT PHYSICAL THERAPY, YOU WILL NEED TO GO TO OUTPATIENT TESTING TO HAVE IT DRAWN. B. There are a few signs you need to watch for after you are home. Call [facility] if you notice any of the followin. Increased severe knee pain. Some pain is expected especially when you exercise. 2. Increased swelling in your leg or knee; pain or swelling of the calf muscle in either lower leg. 3. Any fluid drainage from the incision. 4. Shortness of breath or chest pain. 5. Numbness and tingling in the surgical extremity C. Please call [facility] at if you have any concerns or questions about your operation or recovery. The doctor or his nurse will return your call promptly. D. Do not have any elective dental work or other elective procedures done for 6 weeks after your knee replacement. When you have any invasive procedure (dental cleaning, extraction, colonoscopy etc) performed, you will need to take antibiotics to prevent infection from developing in your artificial joint. Tell your other health care providers you have an artificial joint. My office will supply you with further information and the antibiotics. Call your doctor if: * Temperature above 101 degrees F. * Pain not relieved by pain medicine ordered. * Increased drainage or redness from incision. * Notify your doctor with any questions or concerns. Follow-up Visit: You will follow-up with Dr. Morales 10-14 days after surgery. The office number is . * You have a follow-up scheduled with Dr. Morales on June 10, 2017 at 11: 45 AM. Avoid all tobacco products. If you need help to stop smoking, call [place] at . This is a free call. Current Hospital Diet Patient's current hospital diet: Diabetes Type 2 Diet Discharge Diet Recommended Diet: Regular Diet, Diabetes Type 2 Diet Procedures Procedures Performed: Right Total Knee Arthroplasty Pending Studies Studies pending at discharge: no Laboratory Results Hemoglobin A1c Test 05/27/17 05:44 Range/Units Estimated Average Glucose 126 mg/dl Hemoglobin A1c 6.0 H 4.5-5.6 % Medical Emergencies . Who to Call and When: Medical Emergencies: If at any time you feel your situation is an emergency, please call 911 immediately. . Non-Emergent Contact Non-Emergency issues call your: Surgeon Call Non-Emergent contact if: temperature is above 101, your pain is not controlled, wound has increased drainage, wound has increased redness, wound has increased pain, you have any medication questions . "Provider Documentation" section prepared by Rosie Albright. . VTE Core Measure Inpt VTE Proph given/why not?: Enoxaparin (Lovenox)SQ (30 mg subcutaneous twice a day 28 days), Santy Vargas [place] Drug Monitoring Program Search Results: patient reviewed within database, no issues identified
[2017-05-27] MEDS: HYDROmorphone INJ 0.5 MG/0.5 ML SYR IV PRN ×3 (13:17→19:39)
[2017-05-27 15:28] VITALS: BP 146/81; PULSE 74; TEMP 36.9; O2SAT 96
--- NOTE | 2017-05-27 20:05 | PROGRESS NOTE ---
DATE: 05/27/2017 SUBJECTIVE: Increased soreness in the knee today. Tolerating a regular diet. OBJECTIVE: He is afebrile. His vital signs are stable. His blood sugars are noted and he is being managed through the glycemic protocol. Urine output is adequate. Labs show white count of 10, hematocrit of 29 and a platelet count of 215. His PRP is noted. He did have some spotting through his dressing which has been reinforced. He is not able to do a straight leg raise, but has normal strength, ankle and toe plantar flexion and dorsiflexion. He has normal sensation throughout the foot and a 1+ dorsalis pedis pulse. IMPRESSION: A right total knee replacement. PLAN: Continue to work on exercises for his recently replaced left knee. We will continue to rehabilitate per protocol on the right knee. Will be in tomorrow to change dressing. Pain control appears to be adequate. Lovenox for DVT prophylaxis. I will continue coverage of his blood sugars while he is here in the hospital. Sugars have been much more normalized today. He has done well with therapy.
[2017-05-27] MEDS ORDERED: INSULIN GLARGINE SOLOSTAR 100 UNITS/ML 3 ML PEN SC SCH (21:00)
[2017-05-27] MEDS: DULOXETINE HCL 60 MG CAP PO SCH (21:34)
[2017-05-27] MEDS: CeleBREX 200 MG CAP PO SCH (21:34)
[2017-05-27 23:50] VITALS: BP 134/74; PULSE 80; TEMP 37; O2SAT 94
[2017-05-28] MEDS: OXYCODONE HCL IR 5 MG TAB (IMMEDIATE RELEASE) PO SCH ×2 (00:10→06:04)
[2017-05-28] MEDS: ACETAMINOPHEN 500 MG TAB PO SCH (06:04)
[2017-05-28 06:15] LABS: HEMATOCRIT 27.7 % (42-52); MEAN CELL VOLUME 84.5 fL (80-100); MEAN CORPUSCULAR HEMOGLOBIN 27.7 pg (25-34); MEAN CORPUSCULAR HGB CONC 32.9 g/dl (32-36); MEAN PLATELET VOLUME 10.3 fL (7.4-10.4); PLATELET COUNT 184 K/uL (130-400); RED BLOOD COUNT 3.28 M/uL (4.7-6.1); WHITE BLOOD COUNT 7.55 K/uL (4.8-10.8)
[2017-05-28 06:50] LABS: CREATININE 0.5 mg/dl (0.60-1.40)
[2017-05-28 07:06] VITALS: BP 130/68; PULSE 79; TEMP 36.6; O2SAT 96
--- NOTE | 2017-05-28 07:27 | Discharge Summary ---
Discharge Summary Date of Service May 27, 2017. Discharge Summary Admission Date: May 26, 2017 at 05:45 Discharge Date: May 28, 2017 Discharge Disposition: Home (With outpatient PT) Principal Diagnosis: DJD of right knee Secondary Diagnoses/Problems: Type 2 diabetes, High cholesterol, sleep apnea Procedures: Right total knee arthroplasty May 26, [address] Eddie Morales Pending Studies/Follow-Up: You have a follow-up appointment scheduled with Dr. Morales on June 10, 2017 11:45 AM Medication Reconciliation New Medications: Enoxaparin (Lovenox) 30 Mg/0.3 Ml Inj 30 MG SQ Q12H for 26 Days, #52 SYR 0 Refills Multiple Vitamin (Daily-Nikhil) 1 Tab Tab 1 TAB PO QAM for 30 Days, #30 TAB Oxycodone HCl (Oxycontin) 10 Mg Tabcr 10 MG PO Q12 for 5 Days, #10 TAB 0 Refills Oxycodone HCl (Oxycodone HCl) 5 Mg Tab 10 MG PO Q6H PRN for Pain, #40 TAB 0 Refills Tramadol HCl (Tramadol HCl) 50 Mg Tab 50-100 MG PO Q4H PRN for Pain, #40 TAB 0 Refills Continued Medications: Acetaminophen (Sb Non-Aspirin Extra Stre) 500 Mg Tab 1000 MG PO Q8H for 30 Days, #180 TAB Aspirin (Aspirin Ec) 81 Mg Tab 81 MG PO QAM Docusate Sodium (Docusate Sodium) 100 Mg Cap 100 MG PO BID for 30 Days, #60 CAP Duloxetine Hcl (Cymbalta) 60 Mg Cap 60 MG PO HS, CAP Oxycodone Hcl (Oxycontin) 15 Mg Tab 15 MG PO QID, TAB Admission Information HPI (per Admitting provider): The patient is a 61-year-old male who is scheduled for an elective Right total knee arthroplasty by Dr. Morales and May 26, 2017. His been having ongoing Right knee pain for the past 10 years. Has progressively worsened over the last 6-12 months. He states that most of his pain is on the front of his knee. His pain is bad for a very long time but has gradually worsened. He complains of a lot of stiffness in his Right knee, especially after sitting for prolonged period of time. He also gets stiffness with driving. He says when he tries to get out of the car he feels like it is very weak and very stiff. His pain is increased with activity and weightbearing. He has decreasing activities of daily living due to pain in his Right knee. He has pain with range of motion and limited motion due to his pain. Aggravating activities include walking, going up and down steps, driving, rest. He also does have night pain which wakes him up at night to reposition for comfort. When going up and down the steps he has to use handrails on the steps for safety. Prior treatments include nonsteroidal anti-inflammatory drugs such as Advil and Aleve. He is also on chronic oxycodone which she takes for his knees and back. He is previously had physical therapy for his knees with no significant improvement. He has also tried previous corticosteroid injections and viscous supplementation his Right knee. He is also been going to the pain clinic over the past year for management of his pain due to his knees. Denies any known injury to either knee. Denies any numbness or tingling. He had a successful left total knee arthroplasty by Dr. Morales and April 07, 2017. He is doing well with that and would like to proceed with elective right total knee arthroplasty. Physical Exam (per Admitting): General Appearance: WD/WN, no apparent distress Head: normocephalic, atraumatic Eyes: normal inspection, PERRL, EOMI ENT: normal ENT inspection, hearing grossly normal, TMs normal, pharynx normal Neck: supple, no adenopathy, thyroid normal, no carotid bruits, trachea midline Respiratory/Chest: chest non-tender, lungs clear, normal breath sounds, no respiratory distress, no accessory muscle use Cardiovascular: regular rate, rhythm, no edema, no murmur, normal peripheral pulses Abdomen/GI: normal bowel sounds, non tender, soft Back: normal inspection, normal range of motion Extremities/Musculoskelatal: normal inspection, no calf tenderness, normal capillary refill, no pedal edema, non-tender, + pertinent finding (Exam of Right knee reveals no effusion today, medial joint line tenderness with palpation. Ligamentous exam is intact. Does have a varus deformity. Range of motion of his right knee is 0/10/125. Crepitation with range of motion. Intact straight leg raise. Left knee incision is healed. Mild edema left knee. No significant joint effusion. Stable ligaments exam. Minimal warmth left knee. Full hip and ankle range of motion without discomfort. No distal edema or calf tenderness.) Neurologic/Psych: no motor/sensory deficits, alert, normal mood/affect, normal reflexes, oriented x 3, + pertinent finding Skin: normal color, warm/dry, no rash Lymphatic: no adenopathy Physical Exam (per Admitting): He ambulates with an antalgic gait. Hospital Course Patient was admitted after undergoing elective right total knee arthroplasty by Dr. Eddie Morales May 26, 2017. His surgery was performed with spinal anesthesia and peripheral nerve block. He was given 2 g of IV Ancef for surgical prophylaxis which was continued for 24 hours after surgery. He tolerated the procedure well without any intraoperative complications. Was placed on Lovenox 30 mg twice a day 20 days after surgery for DVT prophylaxis. He was also given JASON stockings to wear on bilateral lower extremities and use of foot pumps during his hospitalization for DVT prophylaxis. He was allowed out of bed, weightbearing as tolerated right lower extremity with the assistance of a knee immobilizer and walker. Physical therapy consult was obtained. His pain was well controlled with IV Dilaudid, OxyContin 10 mg every 12 hours scheduled, oxycodone IR 15 mg by mouth every 6 hours scheduled, oxycodone 10 mg every 6 hours as needed for breakthrough pain, Tylenol 1000 milligrams every 8 hours as needed for pain.He did develop some acute blood loss anemia but no transfusions were needed during his hospitalization. His H& H remained stable throughout his hospital stay. He tolerated a regular diabetic type II diet. He did have some bleeding through his dressings on postoperative day zero, his dressings were reinforced by nursing. No further drainage was appreciated on the dressings. Postoperative day 2 his dressings were changed and a Silverlon dressing was placed over his surgical incision on his right knee. Flexion and extension exercises were encouraged and taught at the bedside. He did well in physical therapy out of bed. He was followed by social media project manager for discharge needs. He requested to go home with outpatient physical therapy. On post operative Day 2 he was evaluated, his dressings were changed. He had a small hematoma of his prepatellar bursa area. Under sterile precautions, approximately 37cc was aspirated from his right knee by Dr. Morales. A Silverlon dressing was applied after the aspiration. He continued to do well out of bed and he was deemed safe for home and was discharged to his home with his in stable condition on May 28, 2017. Discharge instructions were provided. He was provided prescriptions for OxyContin 10 mg every 12 hours, oxycodone IR 10 mg by mouth every 6 hours when necessary pain, tramadol 50 mg 1-2 tabs every 4-6 hours as needed for pain, and Lovenox 30 mg twice a day 28 days. Total time spent on discharge = This includes examination of the patient, discharge planning, medication reconciliation, and communication with other providers. Discharge Instructions Discharge Instructions Date of Service May 27, 2017. Admission Reason for Admission: Right Knee Degenerative Joint Disease Discharge Discharge Diagnosis / Problem: Right knee degenerative joint disease Discharge Goals Goal(s): Decrease discomfort, Improve function, Increase independence Activity Recommendations Activity Limitations: per Instructions/Follow-up section Weightbearing Status: Left weightbearing (as tolerated), Right weightbearing ( as tolerated) . Instructions / Follow-Up Instructions / Follow-Up New Medicine: * You will likely be taking one or more of these medications: 1. Lovenox - You will be on Lovenox for 4 weeks after surgery to prevent blood clots. Aspirin, 81 mg is OK To take while on Lovenox. 2. Oxycontin - Take one every 12 hours 5 days 3. Oxycodone IR - Take, as directed, when you need it, every four to six hours to control your pain, Take a Regularly scheduled 15 mg every 6 hours for pain, and take oxycodone IR 10 mg by mouth every 6 hours as needed for breakthrough pain. 4. Colace & Senokot - Take to prevent constipation which can be caused by narcotics. These can be bought [id number] at the pharmacy 5. Your also given a prescription for tramadol. Take, as directed, one you need it, every 4-6 hours to control your pain. You may take in between the oxycodone IR and the OxyContin as needed for pain. If it does not help her pain , do not take it. * The most common side effects of pain medicine and iron are nausea and constipation. If nausea or constipation is too much of a problem or if you have any questions about your new medicines or doses, call [facility] at . We will try to help you manage these issues. VERY IMPORTANT TO READ AND REVIEW" Blood Clots and Blood Thinning Medicine: * You are given Lovenox during the immediate post-operative period to lessen the risk of blood clots forming in your legs and/or lungs. Lovenox is usually given for 4 weeks after surgery. * You will be asked to get a CBC on Thursday or Thursday after surgery to check her blood count and platelet count due to recent surgery and being on the Lovenox anticoagulation. Physical Therapy: * Do your physical therapy at home. These are the exercises you learned while in the hospital (quad sets, leg raises, calf pumps, gluteal squeezes, knee bending, and heel props.) You should do these exercises 3-4 times per day. * You will either go to inpatient rehab ([facility]), home with Home Therapy and nursing or home with outpatient rehab. You should do rehab with the therapist 2-3 times per week. You should do therapy on your own daily. * You may bear full weight on your leg with crutches or walker unless otherwise advised. Home Exercise: * You were shown a series of exercises (heel props, heel slides, etc.) in the hospital. Do these exercises three to four times each day including the exercises you were shown in physical therapy. Walking: * You may be up for short periods of time. Standing and walking for 1-2 hours at a time is usually okay. You should not stand or walk for excessive periods of time as this may cause increased pain and swelling. SELF CARE INSTRUCTIONS AFTER TOTAL KNEE REPLACEMENT A. You may need to continue a physical therapy program after discharge from the hospital. There are several options available to you. Your doctor will assist you in selecting the best one for you. 1. An out-patient facility 2 to 3 times a week for therapy or home therapy. 2. Continue working on all exercises taught to you in the hospital. Your goals should be to increase bending of your knee to 90 degrees and beyond and to fully straighten your knee. B. Your therapist will notify you when you are able to progress from a walker to a cane. C. Wear TEDS as much as possible.~ They may be removed at night for laundering. D. Do not place a pillow behind your knee when resting. A pillow at your ankle is okay. E. Ice your knee 15-20 minutes every 2-3 hours and elevate it above the level of your heart. F. You may shower on the fourth day after surgery using regular soap and water. Do not submerge until the wound is completely healed (approximately 2 weeks ). Until the fourth day after surgery, cover the incision/bandage with a bag or plastic wrap. G. Anyone who is touching your surgical incision area should wash their hands and wear gloves. H. Keep your incision covered with gauze pads under the JASON hose until it is dry. I. Keep this Silverlon dressing on your right knee for 7 days. You may shower with this dressing in place. Do not remove dressing to shower. If the dressing falls off prior to 7 days, then redressed with a light gauze pad if needed. If dry than no dressings are needed. VERY IMPORTANT TO READ AND REVIEW A. YOU WILL BE GIVEN AN ORDER AT DISCHARGE FOR CBC (BLOOD WORK). PLEASE HAVE THIS DONE INSTRUCTED. PLEASE CALL OUR OFFICE AFTER YOUR BLOODWORK IS COMPLETE SO WE CAN TRACK YOUR RESULTS. IF YOU ARE GOING TO OUTPATIENT PHYSICAL THERAPY, YOU WILL NEED TO GO TO OUTPATIENT TESTING TO HAVE IT DRAWN. B. There are a few signs you need to watch for after you are home. Call [facility] if you notice any of the followin. Increased severe knee pain. Some pain is expected especially when you exercise. 2. Increased swelling in your leg or knee; pain or swelling of the calf muscle in either lower leg. 3. Any fluid drainage from the incision. 4. Shortness of breath or chest pain. 5. Numbness and tingling in the surgical extremity C. Please call [facility] at if you have any concerns or questions about your operation or recovery. The doctor or his nurse will return your call promptly. D. Do not have any elective dental work or other elective procedures done for 6 weeks after your knee replacement. When you have any invasive procedure (dental cleaning, extraction, colonoscopy etc) performed, you will need to take antibiotics to prevent infection from developing in your artificial joint. Tell your other health care providers you have an artificial joint. My office will supply you with further information and the antibiotics. Call your doctor if: * Temperature above 101 degrees F. * Pain not relieved by pain medicine ordered. * Increased drainage or redness from incision. * Notify your doctor with any questions or concerns. Follow-up Visit: You will follow-up with Dr. Morales 10-14 days after surgery. The office number is . * You have a follow-up scheduled with Dr. Morales on June 10, 2017 at 11: 45 AM. Avoid all tobacco products. If you need help to stop smoking, call [place]IT[facility] at . This is a free call. Current Hospital Diet Patient's current hospital diet: Diabetes Type 2 Diet Discharge Diet Recommended Diet: Regular Diet, Diabetes Type 2 Diet Procedures Procedures Performed: Right Total Knee Arthroplasty Pending Studies Studies pending at discharge: no Laboratory Results Hemoglobin A1c Test 05/27/17 05:44 Range/Units Estimated Average Glucose 126 mg/dl Hemoglobin A1c 6.0 H 4.5-5.6 % Medical Emergencies . Who to Call and When: Medical Emergencies: If at any time you feel your situation is an emergency, please call 911 immediately. . Non-Emergent Contact Non-Emergency issues call your: Surgeon Call Non-Emergent contact if: temperature is above 101, your pain is not controlled, wound has increased drainage, wound has increased redness, wound has increased pain, you have any medication questions . "Provider Documentation" section prepared by Rosie Albright. . VTE Core Measure Inpt VTE Proph given/why not?: Enoxaparin (Lovenox)SQ (30 mg subcutaneous twice a day 28 days), Santy Vargas [place] Drug Monitoring Program Search Results: patient reviewed within database, no issues identified
--- NOTE | 2017-05-28 07:28 | Progress Note ---
Progress Note Date of Service May 28, 2017. Progress Note Pain well-controlled. Better if removing dressing. No chest pains or shortness of breath. Afebrile vital signs stable. White count normal hemoglobin 7 hematocrit 28. Urine output adequate. The Silverlon dressing is removed. He has a moderate amount of fluid within the knee. There appears to be a hematoma in the subcutaneous tissues in the region where his prepatellar bursa was excised. He cannot do a leg raise. Knee range of motion is 0/10/45. He has a 1+ dorsalis pedis pulse and 5 out of 5 ankle and toe plantarflexion and dorsiflexion strength with normal sensation. Verbal consent. Preprocedural timeout. The right knee is prepped with Betadine. The's subcutaneous tissues in the patellar tendon area are aspirated yielding approximately 35 mL of blood which relieved the fluctuance and swelling in this area. The incision was otherwise benign and there is no active drainage. A new Silverlon dressing is applied. Impression is right knee replacement #2 acute blood loss anemia #3 hematoma Plan. His pain is well-controlled. He is doing well with PT. He is ready for discharge home. He'll have follow-up with me in 2 weeks as scheduled. He will get into outpatient PT later this week. He'll continue his regular medications as well as Lovenox and pain medication regimen. Will check a CBC on Thursday. Discussed bathing use of the dressing wound care and drainage issues. Activity levels are discussed. There is any problems with drainage fever swelling tingling numbness anything like that please call the office or return sooner. He is to wear the knee immobilizer only when ambulating until he is able to do an active straight leg raise. He is to adhere to his diabetic diet in order to control his blood sugars perioperatively.
[2017-05-28] MEDS: INSULIN ASPART 100 UNITS/ML 3 ML PEN SC SCH (08:14)
[2017-05-28] MEDS: ENOXAPARIN 30 MG/0.3 ML SYR SQ SCH (08:15)
[2017-05-28] MEDS ORDERED: INSULIN GLARGINE SOLOSTAR 100 UNITS/ML 3 ML PEN SC SCH (09:00)
[2017-05-28] MEDS: CeleBREX 200 MG CAP PO SCH (09:05)
[2017-05-28] MEDS: OXYCODONE HCL 10 MG TABCR (OXYCONTIN) PO SCH (09:05)
[2017-05-28] MEDS: DOCUSATE SODIUM 100 MG CAP PO SCH (09:05)
[2017-05-28] MEDS: PANTOprazole SOD 40 MG TAB PO SCH (09:05)
[2017-05-28] MEDS: ASPIRIN 81 MG ECTAB PO SCH (09:05)
[2017-05-28] MEDS: MULTIVITAMIN TAB PO SCH (09:05)
[2017-05-28 09:40] VITALS: BP 130/68; PULSE 79; TEMP 36.6; O2SAT 96
== END 2017-05-28 10:16 | disposition home or self-care (01) | DRG 470 ==
LOC: C.ACU 05:03 → C.3E 05:45 → ENRESERV 10:56
PROVIDERS: ADMIT Physical Medicine & Rehabilitation Sports Medicine; ATTEND Physical Medicine & Rehabilitation Sports Medicine
PROC: 0SRC0J9 Replacement of Right Knee Joint with Synthetic Substitute, Cemented, Open Approach (ICD-10-PCS; principal; 2017-05-26 07:00)
DX: M17.11 Unilateral primary osteoarthritis, right knee (principal); I25.2 Old myocardial infarction; E11.9 Type 2 diabetes mellitus without complications; G47.30 Sleep apnea, unspecified; Z96.652 Presence of left artificial knee joint; Z82.49 Family history of ischemic heart disease and other diseases of the circulatory system; Z83.3 Family history of diabetes mellitus; E78.00 Pure hypercholesterolemia, unspecified